=== PATIENT | female | born 1995 | race Caucasian/White ===

== ENCOUNTER → 2017-09-02 11:44 | Outpatient (CLI) | payer MEDICAID, SELFPAY ==
[2017-09-02 12:27] LABS: Color, Urine Yellow (Yellow); Glucose, Dipstick Normal (Normal); Ketone-Dipstick Negative (Negative); Leukocyte Esterase-Dipstick 100 /ul (Negative); Nitrite-Dipstick Negative (Negative); Occult Blood-Urine Negative /ul (Negative); Protein-Dipstick 15 mg/dl (Negative); Specific Gravity, Urine 1.015 (1.002-1.030); Urine Bilirubin Dipstick Negative (Negative); Urine Clarity Clear (Clear); Urine Urobilinogen Normal (Normal)
[2017-09-02 12:35] LABS: Absolute Lymphocyte Count 1.55 X10^3/ul (0.83-4.51); Absolute Neutrophil Count 9.4 X10^3/uL (2.0-7.7); Basophil# 0.02 X10^3/uL; Basophil% 0.2 % (0-1); Eosinophil# 0.14 X10^3/uL; Eosinophils% 1.2 % (0-5); Hematocrit 41.3 % (37-47); Hemoglobin 14.8 g/dl (12.0-15.0); Lymphocyte # 1.55 X10^3/ul (4.0); Lymphocyte % 13.2 % (19-41); Mean Corp Hgb Conc 35.8 g/gl (32-36); Mean Corpuscular Hgb 32.4 pg (27.0-32.0); Mean Corpuscular Volume 90.4 fL (81-99); Mean Platelet Vol. 10.6 fl (6.2-12.0); Monocyte% 5.1 % (0-10); Neutrophil % 79.9 % (47-70); Platelet Count 261 K/mm3 (150-450); RBC Distribution Width CV 13.8 % (11.6-14.6); RBC Distribution Width SD 45.5 fl (35.1-43.9); Red Blood Count 4.57 M/mm3 (4.2-5.4); White Blood Count 11.8 K/mm3 (4.4-11.0)
[2017-09-02 12:36] LABS: POSITIVE COUNT NO; POSITIVE DIFFERENTIAL NO; POSITIVE MORPHOLOGY NO
[2017-09-02 12:49] LABS: Amphetamine Urine VISTA NEGATIVE (<1000 ng/mL); Barbiturate Urine VISTA NEGATIVE (< 200 ng/mL); Benzodiazepine Urine VISTA NEGATIVE (< 200 ng/mL); Cocaine Urine VISTA NEGATIVE (< 300 ng/mL); Ecstacy Urine VISTA NEGATIVE (< 500 ng/mL); Methadone Urine VISTA NEGATIVE (< 300 ng/mL); PCP Urine VISTA NEGATIVE (< 25 ng/mL); THC Urine VISTA NEGATIVE (< 50 ng/mL); Vista UDS pH Range 7
[2017-09-02 13:41] LABS: Thyroid Stim Hormone (TSH) 1.27 uIU/mL (0.358-3.74)
[2017-09-02 14:34] LABS: Chlamydia Trachomatis by PCR Negative (Negative); Neisserai gonorrhoeae by PCR Negative (Negative); Probe Check PASS; Sample Adequacy Control PASS; Specimen Processing Control PASS
[2017-09-03 10:31] LABS: HIV - WCH Non-Reactive (Nonreactive); Rubella IgG 33.7 IU/mL
[2017-09-05 05:02] LABS: Prenatal RPR NONREACTIVE (NONREACTIVE)
[2017-09-10 10:20] LABS: HEPATITIS B SURFACE AG Negative (Negative); Hep C Antibodies 0.1 s/co ratio (0.0-0.9); V-Zoster IgG (Immunity) < 135 index (Immune >165); V-Zoster Virus Acute IgM < 0.91 index (0.00-0.90)
== END ==
PROVIDERS: Visit Provider Obstetrics & Gynecology
DX: Z34.82 Encounter for supervision of other normal pregnancy, second trimester (principal)
CPT/HCPCS: 36415; 80307; 81002; 81241; 81291; 84443; 85025; 86703; 86762; 86787; 86803; 87340; 87491; 87591

== ENCOUNTER → 2017-10-28 14:06 | Outpatient (CLI) | payer MEDICAID, SELFPAY ==
[2017-10-28 16:03] LABS: Hematocrit 41.3 % (37-47); Mean Corp Hgb Conc 33.9 g/gl (32-36); Mean Corpuscular Volume 94.5 fL (81-99); Mean Platelet Vol. 10.8 fl (6.2-12.0); Platelet Count 286 K/mm3 (150-450); RBC Distribution Width CV 13.6 % (11.6-14.6); RBC Distribution Width SD 47.2 fl (35.1-43.9); Red Blood Count 4.37 M/mm3 (4.2-5.4); Scan Indicated on CBC? Y/N NO; White Blood Count 12.9 K/mm3 (4.4-11.0)
[2017-10-28 16:05] LABS: Glucose Challenge Gest 1H 50g 121 mg/dL (70-140)
== END ==
PROVIDERS: Visit Provider Obstetrics & Gynecology
DX: Z34.83 Encounter for supervision of other normal pregnancy, third trimester (principal)
CPT/HCPCS: 82950; 85027

== ENCOUNTER → 2017-12-04 15:18 | Outpatient (CLI) | payer MEDICAID, SELFPAY ==
[2017-12-04 15:48] LABS: ROM Internal Control Test YES-OK TO RESULT pt. (Internal QC); ROM Patient Test Negative (Negative)
[2017-12-04 16:04] LABS: Fetal Fibronectin POSITIVE
== END ==
PROVIDERS: Visit Provider Obstetrics & Gynecology
DX: Z34.82 Encounter for supervision of other normal pregnancy, second trimester (principal)
CPT/HCPCS: 82731; 84112

== ENCOUNTER 2017-12-09 15:40 | Outpatient (CLI) | payer MEDICAID, SELFPAY ==
[2017-12-09 15:56] VITALS: BMI 34.9
[2017-12-09] MEDS: Betamethasone/Betamethasone 30 MG/5 ML Vial 12 MG IM (16:21)
--- NOTE | 2017-12-10 08:31 | OB.TRI.NOTE ---
History of Present Illness Date of Service: 12/09/17 Was patient seen by the physician?: Yes Reason For Visit: INJECTION Date of Service: 12/09/17 Final FARHAT: 01/28/18 Final FARHAT Source: US <20 weeks Gestational age: 33 Weeks and 0 Days History of Present Illness: Visit for celestone injection due to risk of premature delivery. +FFN last week, history of 33 week delivery. Allergies bee venom protein (honey bee) Allergy (Verified 12/09/17 16:01) Anaphylaxis sulfamethoxazole [From Novra] Allergy (Verified 12/09/17 16:01) Hives trimethoprim [From Novra] Allergy (Verified 12/09/17 16:01) Hives Physical Exam General: Alert, Oriented x3, Cooperative, No apparent distress Lungs: Clear to auscultation, Normal air movement Abdomen: Soft, Non Tender, Non-Distended, Gravid, Appropriate for Gestational Age Extremities:: No edema Neurological: Neuro grossly intact Estimated gestational size: Appropriate for gestational size Presentation: Cephalic Impression/Plan Given first dose of 2 celestone injections to promote lung maturity due to risk of delivery.
== END 2017-12-09 16:30 | disposition home or self-care (01) ==
LOC: WPOUT 15:44 → WP 15:45
PROVIDERS: Referring Provider Obstetrics & Gynecology; Visit Provider Obstetrics & Gynecology
DX: O09.213 Supervision of pregnancy with history of pre-term labor, third trimester (principal); Z3A.33 33 weeks gestation of pregnancy
CPT/HCPCS: 96372; 99218; G0378; J0702

== ENCOUNTER 2017-12-10 15:50 | Outpatient (CLI) | payer MEDICAID, SELFPAY ==
[2017-12-10 16:07] VITALS: BMI 34.9
[2017-12-10] MEDS: Betamethasone/Betamethasone 30 MG/5 ML Vial 12 MG IM (16:51)
[2017-12-10 17:40] LABS: ROM Internal Control Test YES-OK TO RESULT pt. (Internal QC); ROM Patient Test Negative (Negative)
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
== END 2017-12-10 20:30 | disposition home or self-care (01) ==
LOC: WPOUT 15:54 → WP 15:55
PROVIDERS: Referring Provider Obstetrics & Gynecology; Visit Provider Obstetrics & Gynecology
DX: O09.213 Supervision of pregnancy with history of pre-term labor, third trimester (principal); Z3A.33 33 weeks gestation of pregnancy; V89.2XXA Person injured in unspecified motor-vehicle accident, traffic, initial encounter; Y93.9 Activity, unspecified; Y92.9 Unspecified place or not applicable
CPT/HCPCS: 59025; 59050; 84112; 96372; 99218; G0378; J0702

== ENCOUNTER 2017-12-21 19:05 | Outpatient (CLI) | payer MEDICAID, SELFPAY ==
[2017-12-21 20:03] LABS: Red Blood Cells-Urine 0 SEEN /hpf (0-5)
[2017-12-21 20:04] LABS: Color, Urine Yellow (Yellow); Glucose, Dipstick Normal (Normal); Ketone-Dipstick 5 mg/dl (Negative); Leukocyte Esterase-Dipstick 25 /ul (Negative); Nitrite-Dipstick Negative (Negative); Occult Blood-Urine 10 /ul (Negative); Protein-Dipstick 30 mg/dl (Negative); Specific Gravity, Urine 1.025 (1.002-1.030); Urine Bilirubin Dipstick Negative (Negative); Urine Clarity Sl. Cloudy (Clear); Urine Urobilinogen 1 mg/dl (Normal); Urine pH 6.5 (5.0 - 8.0)
[2017-12-21 20:10] LABS: Bacteria RARE /hpf (None Seen); Squamous Epithelial Cells - UA 5-10 SEEN /hpf (5-10); White Blood Cells 0-5 SEEN /hpf (0-5)
[2017-12-21 20:11] LABS: Mucous, Urine RARE /hpf (<or=2+)
[2017-12-21 20:22] VITALS: BMI 34.4
[2017-12-21 20:27] LABS: ROM Internal Control Test YES-OK TO RESULT pt. (Internal QC); ROM Patient Test Negative (Negative)
[2017-12-21] MEDS: Lactated Ringers 1,000 ML 999 ML IV (21:00)
[2017-12-21 21:14] LABS: Hemoglobin 13.2 g/dl (12.0-15.0); Mean Corp Hgb Conc 33.8 g/gl (32-36); Mean Corpuscular Hgb 31.6 pg (27.0-32.0); Mean Corpuscular Volume 93.3 fL (81-99); Mean Platelet Vol. 10.1 fl (6.2-12.0); Platelet Count 246 K/mm3 (150-450); RBC Distribution Width CV 13.5 % (11.6-14.6); RBC Distribution Width SD 45.3 fl (35.1-43.9); Red Blood Count 4.18 M/mm3 (4.2-5.4); Scan Indicated on CBC? Y/N NO; White Blood Count 12.7 K/mm3 (4.4-11.0)
[2017-12-21] MEDS: Cefazolin 2 GM in 0.9% Normal Saline 100 ML IV (21:14)
[2017-12-21] MEDS: Acetaminophen 500 MG Tablet 1000 MG PO (21:18)
[2017-12-21 21:28] LABS: Group B Strep DNA By PCR Negative (Negative); Internal Control PASS; Probe Check PASS; Specimen Processing Control PASS
--- NOTE | 2017-12-21 21:49 | PCM.HP.BLA ---
History and Physical Date of Admission: 12/21/17 [facility] History of this : 22 yo female Ab4 with EDC 01/28/2018 by Ultrasound, presents to Labor and Delivery with contractions ast 34 weeks and 5 days gestation. care remarkable for - HSV prophylaxis after 36 wks., H/O 33 wk delivery SPPROM, NOT immune to CHICKENPOX. 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 NOT at increased risk of clot. Pertinent Past Medical History: Group B Strep - Negative 12/21/17; none Allergies: Adhesive Tape Medications: During - albuterol sulfate HFA 90 mcg/actuation aerosol inhaler; aspirin 81 mg chewable tablet; famotidine 20 mg tablet; Flintstones Multivitamin chewable tablet; Zofran 4 mg tablet; Protonix 40 mg tablet,delayed release; sertraline 50 mg tablet; Promethazine VC-Codeine 6.25 mg-5 mg-10 mg/5 mL syrup; valacyclovir 500 mg tablet Heart: Reactive Physical Exam: Cervix 3/50/-2 Impression /Plan: 34+ week IUPwith transient contractions. UA with positive blood and bacteria. Plan hydration, single dose IV Ancef, Urine C and S and monitor. GBS done. Had dose of celestone last week. 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 COMMUNITY PLAN POLICY # [id number] /DOMESTIC PARTNER KYE PHONE doesn't answer cell. FATHER OF BABY KYE PHONE prev page. EMERGENCY CONTACT LUDY MOORE PHONE [phone] MENSTRUAL HISTORY LMP KNOWN: DEFINITE MENSES REGULARITY REGULAR FREQUENCY: monthly DAYS MENARCHE 9 (AGE ONSET) DATE: 04/23/2017 PRIOR MENSES ON BCP AT CONCEPTION NO HCG + AMOUNT/DURATION: PAST PREGNANCIES (LAST SIX) DATE MONTH/ YEAR GA WEEKS LENGHTH OF LABOR WEIGHT SEX M/F TYPE DELIBERY ANES. PLACE OF DLEIVERY LABOR YES/NO COMMENTS/ COMPLICATIONS 03/12 8 0 0 lbs. 0 oz. Vag None [place] No SAB 03/14 8 0 0 lbs. 0 oz. Sab None Ruby No 12/15 33 4 4 lbs. 12 oz. F Vag Epidural NC yes NICU 10 D. 03/18 8 0 0 lbs. 0 oz. Vag None HOME No SAB 04/19 8 0 0 lbs. 0 oz. Vag None HOME No SAB GENETIC SCREENING/TERATOLOGY COUNSELING INCLUDES PATIENT, BABY'S FATHER, OR ANYONE IN EITHER FAMILY WITH: YES NO YES NO 1. PATIENT'S AGE >35 YEARS OF ESTIMATED DATE OF DELIVERY No 12. GERMÁN'S CHOREA No 2. THALASSENMIA (MALAYSIAN, FAROESE, MEDITERRANEAN, OR BACKGROUND): MCV <80 No 13. MENTAL RETARDATION/AUTISM No 3. NEURAL TUBE DEFECT (MENINGOMYELOCELE, SPINA BIFICA, OR ANENCEPHALY) No IF YES, WAS PERSON TESTED FOR FRAGILE X? No 4. CONGENITAL HEART DEFECT No 14. OTHER INHERITED GENETIC OR CHROMOSOMAL DISORDER Yes 5. DOWN SYNDROME No 15. MATERNAL METABOLIC DISORDER (EG, TYPE 1 DIABETES, PKU) No 6. ARTIE-SACHS (EG, CAODAISM, CAJUN, ROMANIAN FINNISH) No 16. PATIENT OR BABY'S FATHER HAD A CHILD WITH DEFECTS NOT LISTED ABOVE No 7. YVAN DISEASE 17. RECURRENT LOSS, OR A ASTILLBIRTH Yes x4 8. SICKLE CELL DISEASE OR TRAIT () No 18. MEDICATIONS (INCLUIDNG SUPPLEMENTS, VITAMINS, HERBS OR OTC DRUGS) /ILLICIT/RECREATIONAL DRUGS /ALCOHOL SINCE LAST MENSTRUAL PERIOD Yes 9. HEMOPHILIA OR OTHER BLOOD DISORDERS No IF YES, AGENT(S) AND STRENGTH/DOSAGE 10. MUSCULAR DSTROPHY No 11. CYSTIC FIBROSIS No-declines screening 19. ANY OTHER Yes COMMENTS/ COUNSELING baby aspirin, famotidine, albuterol inhaler daughter w autism INFECTION HISTORY YES NO YES NO 1. LIVE WITH SOMEONE WITH TB OR EXPOSED TO TB No 4. HISTORY OF STD, GONORRHEA, CHLAMYDIA, HPV, SYPHILIS Yes 2. PATIENT OR PARTNER HAS HISTORY OF GENITAL HERPES Yes 5. OTHER (See Comments) 3. [facility]NESS [facility] No COMMENTS Her mother has AIDS. PREPREGNANCY WEIGHT 218 DRUG ALLERGY LATEX ALLERGY Septra Adhesive Tape NONE IS BLOOD TRANSFUSION ACCEPTABLE JOY AN EMERGENCY? YES NO ANESTHESIA CONSULT PLANNED YES NO PROBLEMS/PLANS 1 HX- asthma, bronchitis, UTIs. 2 ALLERGIES- Septra, tape. 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 4 Cell free DNA WNL. 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 testing NEG 6 H/O 33 wk delivery SPPROM On progesterone injections Cervical length 3.96 cm at 27 wks EGA 7 H/O depression, anxiety, PTSD On Sertraline 8 HSV prophylaxis after 36 wks. 9 Neg Factor V Leiden. NOT at increased risk of clot. MTHFR. mutations 10 NOT immune to CHICKENPOX. Varicella IgG NEG MEDICATION LIST START DATE STOP DATE 1 albuterol sulfate HFA 90 mcg/actuation aerosol inhaler 09/02/2017 2 aspirin 81 mg chewable tablet 09/02/2017 3 famotidine 20 mg tablet 09/02/2017 4 Flintstones Multivitamin chewable tablet 09/02/2017 5 Zofran 4 mg tablet 09/02/2017 6 Protonix 40 mg tablet,delayed release 09/11/2017 7 sertraline 50 mg tablet 09/11/2017 8 Promethazine VC-Codeine 6.25 mg-5 mg-10 mg/5 mL syrup 10/29/2017 9 valacyclovir 500 mg tablet 12/04/2017 FARHAT CONFIRMATION INITIAL FARHAT LMP = FARHAT INITIAL EXAM = WKS = FARHAT ULTRASOUND = WKS = FARHAT INITIAL FARHAT INITIALED BY 18-20-WEEK FARHAT UPDATE QUIKENING + 22 WKS = FUNDAL HT. AT UMBIL. +20 WKS = ULTRASOUND = WKS= FINAL FARHAT 01/28/2018 INITIALED BY 09/02/17 18 19 ? + + 124/70 212 tr/- 0 1 DS see note 09/09/17 19 20 ? + + 128/64 213 -/- 0 4 DS see note 09/30/17 22 26 ? + + 126/78 210 -/- 0 4 DS see note 10/28/17 26 - - U+ + 100/72 212 tr/- 0 2 ELB GCT today, occ ctx's 11/11/17 28 29 ? + + 124/70 212 tr/- 0 3 DS No problems 12/04/17 32 32 V + + cl TH -2 116/74 208 -/- 2 DS c/o increased vomiting and leaking fluid dg 12/09/17 32 33 V + + 120/70 210 tr/- 1 DS No problems 12/18/17 34 34 V + + 108/70 205 tr/- sl 1 DS doing well, u/s prior PROBLEMS 09/02/17 Renetta presents as a transfer of care for her . She has had some care and an MFM consultation. She has a number of different issues. She has a history of miscarraiges and one delivery at 33 weeks. She should be on Chestnut injections and am unsure if this is set up but I think home visits would be warranted given social situation. Will plan on serial cervical lengths. She is a carrier of the MTHFR mutation per her history but we do not know whether she is a homo- or heterozygote or whether she carries any other inhertited coagulopathies. She does take a baby aspirin daily. She also reports being a Fragile X carrier but no records of this as well. I will attempt to get MFM records. She scores poorly on the [place] depression scale today and will need to address this issue but is not suicidal or having thoughts of harming herself. An anatomical US is ordered for next visit. labs ordered today. 09/02/17 Renetta is here with her mother, Ludy, her sister and her very active 4 yo daughter, Jennifer for her NOB nurse visit as a transfer of care from [place]. They are living in a trailer with other family members. Renetta is unemployed. Her , Edilson works at [employer] as a handstitching machine armhole feller. She is planning a vag del at [facility] w epidural, using either [facility] in [place] or Dr Sharon Tena for post disch ped care. She plans to breastfeed. Renetta is a G 6 P 1 with delivery at 33 weeks as PTL was unable to be stopped with MGSO4 w 10 NICU days in [place]. Jennifer has SPD, Sensory Processing Disorder and is probably on the autism spectrum. Renetta's FARHAT is Jan 28, 2018. She continues to have NVP w promethazine and Reglan unhelpful. States I threw up in your parking lot today. Her medical history includes: asthma, anxiety, depression, herpes, PTSD, UTIs, bronchitis every year and she has MTHER. Also she is a carrier for Fragile X Syndrome. She's been on Vibryd but didn't like feeling drugged so I quit taking it. EPDS score was 22. Renetta has smoked since age 13 as much as two PPD. Now is 10-14 cigarettes daily. Risks of smoking to placenta and fetus discussed and advised to cut down and quit. She states I am a recovered drug addict- I did anything and everything- it will be 4 years in December. Her diet sounds fairly balanced w minimal caffeine and close to one gal water qd. Renetta is allergic to Septra and adhesive tape. Her meds include an Albuterol Inhaler prn, baby aspirin daily, famotidine and a [facility] Vitamin. Advised she could take two of the vitamins. Genetic Screening form completed noting her Fragile X status, daughter w dev disabilities. AFP and CF declined as she states she has had extensive genetic testing done at [facility]. Warning signs in reviewed along with reaching office after hours, OTC meds ok to take, importance of protein in diet, walking 20 min daily and she voices understanding. During the visit her mother answered many questions for her. Family history is documented including her mother who states I have AIDS. Detailed History screen completed. Routine labs done plus some added by Dr Vergara. She was given new patient office information and a copy of What to Expect and these were reviewed w her. Questions answered. Enc to call w any concerns. Visit lasted approx 80 minutes. Joanna SOTELO. 09/09/17 Anatomical US performed today. No anomalies noted. Normal growth, placentation and umbilical cord. Cervical length normal. Has been denied for Chestnut injections--will appeal based on history. Extensive records reviewed. Plan to continue cervical lengths every 2-3 weeks. Will consider FFN testing once 24 weeks. 09/30/17 Weekly progesterone injections. Feeling FM. kbm 09/30/17 No complaints. US with growth >90th%. Cervical length normal. Will follow cervical lengths. 10/28/17 Hgb 14 g/dl. Glucola 121 EB 11/11/17 Some nauseousness and heartburn. Good movement. GCT and CBC normal last visit. 12/04/17 Continues with nausea and vomitting with heartburn despite antiemetics and protonix. FFN and ROM+ testing done today. Cervical length 3.0 cm. Good movement. Growth scan and cervical length next visit. 12/09/17 Doing well this week. No contractions. FFN+ last week. Will send to [facility] for celestone injection series. No bleeding or signs of SROM. Will obtain growth US next visit as last US >90th%tile. Continues weekly Li injections 12/18/17 Some irregular contractions. BRITNI low on US today. Plan GBS screening next visit and f/u US to observe fluid. Growth normal. Lab Results since: 06/02/2017 ORDER DATEIN DESCRIPTION VALUE COMMENT CBC-COMPLETE BLOOD CNT NO DIFF 12/21/17 NOTE WBC 12.7 RBC 4.18 HGB 13.2 HCT 39.0 MCV 93.3 MCH 31.6 MCHC 33.8 RDW CV 13.5 RDW SD 45.3 PLT 246 MPV 10.1 GROUP B STREP DNA BY PCR 12/21/17 NOTE GBS TEST RESULT Negative URINALYSIS, COMPLETE 12/21/17 NOTE COLOR Yellow CLARITY Sl. Cloudy GLUCOSE, UR Normal BILIRUBIN URINE Negative KETONE UR 5 SP.GR. DIPSTX 1.025 PH UR 6.5 PROT DIPSTX 30 UROBILI 1 NITRITE UR Negative OCCULT BLOOD-UR 10 LEUK ESTERASE 25 WBC 0-5 SEEN RBC-UA 0 SEEN SQUAM EPI 5-10 SEEN BACTERIA RARE MUCUS, URINE RARE (ROM) RUPTURE OF MEMBRANES 12/21/17 NOTE ROM Negative NOTE ROM Negative (ROM) RUPTURE OF MEMBRANES 12/04/17 NOTE ROM Negative FIBRONECTIN 12/04/17 NOTE FFN POSITIVE GLUCOSE CHALLENGE GEST 1H 50G 10/28/17 NOTE GLU GEST 50G 1H 121 CBC-COMPLETE BLOOD CNT NO DIFF 10/28/17 NOTE WBC 12.9 RBC 4.37 HGB 14.0 HCT 41.3 MCV 94.5 MCH 32.0 MCHC 33.9 RDW CV 13.6 RDW SD 47.2 PLT 286 MPV 10.8 MTHFR DNA VARIANT 09/02/17 NOTE MTHFR DNA Result: C677T Single mutation (C677T) identified FACT V LEIDEN MUTATION 09/02/17 NOTE FACTOR V LEIDEN Result: Negative (no mutation found) DATE 12/21/2017 Page Number 8 NAME [facility] [id number] Medical Record V-ZOSTER VIRUS ACUTE IGM 09/02/17 NOTE V ZOS IGM 77762 < 0.91 V-ZOSTER IGG (IMMUNITY) 09/02/17 NOTE VZOST IGG 19507 < 135 HEPATITIS C ANTIBODIES 09/02/17 NOTE HEP C AB 0.1 HEPATITIS B SURFACE AG 09/02/17 NOTE HB SURF AG Negative RPR 09/02/17 NOTE RPR NONREACTIVE RUBELLA IGG 09/02/17 NOTE RUBELLA IGG 33.7 HIV - WCH 09/02/17 NOTE HIV - [facility] Non-Reactive CT/NG W[facility] BY PCR 09/02/17 NOTE NITOAM TRAC PCR Negative NG BY PCR Negative T AND S-NO CHARGE W/PNP 09/02/17 BLOOD TYPE GEL AB POSITIVE AB SCREEN GEL NEGATIVE THYROID STIM HORMONE (TSH) 09/02/17 NOTE TSH 1.27 URINE DRUG SCREEN (VISTA) 09/02/17 NOTE TO BE CONFIRMED VISTA UDS PH 7 AMPHETAMINES NEGATIVE BARBITIURATES NEGATIVE BENZODIAZIPINE NEGATIVE COCAINE NEGATIVE ECSTACY NEGATIVE METHADONE NEGATIVE OPIATES NEGATIVE PCP NEGATIVE THC NEGATIVE CBC W/DIFF, AUTOMATED 09/02/17 NOTE WBC 11.8 RBC 4.57 HGB 14.8 HCT 41.3 MCV 90.4 MCH 32.4 MCHC 35.8 RDW CV 13.8 RDW SD 45.5 PLT 261 MPV 10.6 NEUT% 79.9 LY% 13.2 MONO% 5.1 EO% 1.2 BASO% 0.2 IM GRAN % 0.400 ABSOLUTE NEUT 9.4 ABSOLUTE LYMPH 1.55 URINALYSIS, ROUTINE (DIPSTICK) 09/02/17 NOTE COLOR Yellow CLARITY Clear GLUCOSE, UR Normal BILIRUBIN URINE Negative KETONE UR Negative SP.GR. DIPSTX 1.015 PH UR 7.0 PROT DIPSTX 15 UROBILI Normal NITRITE UR Negative OCCULT BLOOD-UR Negative LEUK ESTERASE 100
--- NOTE | 2017-12-21 21:54 | HP.PCM_ITS ---
History and Physical Date of Admission: 12/21/17 [facility] History of this : 22 yo female Ab4 with EDC 01/28/2018 by Ultrasound, presents to Labor and Delivery with contractions ast 34 weeks and 5 days gestation. care remarkable for - HSV prophylaxis after 36 wks., H/O 33 wk delivery SPPROM, NOT immune to CHICKENPOX. 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 NOT at increased risk of clot. Pertinent Past Medical History: Group B Strep - Negative 12/21/17; none Allergies: Adhesive Tape Medications: During - albuterol sulfate HFA 90 mcg/actuation aerosol inhaler; aspirin 81 mg chewable tablet; famotidine 20 mg tablet; Flintstones Multivitamin chewable tablet; Zofran 4 mg tablet; Protonix 40 mg tablet,delayed release; sertraline 50 mg tablet; Promethazine VC-Codeine 6.25 mg-5 mg-10 mg/5 mL syrup; valacyclovir 500 mg tablet Heart: Reactive Physical Exam: Cervix 3/50/-2 Impression /Plan: 34+ week IUPwith transient contractions. UA with positive blood and bacteria. Plan hydration, single dose IV Ancef, Urine C and S and monitor. GBS done. Had dose of celestone last week. 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 FATHER OF BABY KYE PHONE prev page. EMERGENCY CONTACT LUDY MOORE PHONE [phone] MENSTRUAL HISTORY LMP KNOWN: DEFINITE MENSES REGULARITY REGULAR FREQUENCY: monthly DAYS MENARCHE 9 (AGE ONSET) DATE: 04/23/2017 PRIOR MENSES ON BCP AT CONCEPTION NO HCG + AMOUNT/DURATION: PAST PREGNANCIES (LAST SIX) DATE MONTH/ YEAR GA WEEKS LENGHTH OF LABOR WEIGHT SEX M/F TYPE DELIBERY ANES. PLACE OF DLEIVERY LABOR YES/NO COMMENTS/ COMPLICATIONS 03/12 8 0 0 lbs. 0 oz. Vag None [place] No SAB 03/14 8 0 0 lbs. 0 oz. Sab None Ruby No 12/15 33 4 4 lbs. 12 oz. F Vag Epidural NC yes NICU 10 D. 03/18 8 0 0 lbs. 0 oz. Vag None HOME No SAB 04/19 8 0 0 lbs. 0 oz. Vag None HOME No SAB GENETIC SCREENING/TERATOLOGY COUNSELING INCLUDES PATIENT, BABY'S FATHER, OR ANYONE IN EITHER FAMILY WITH: YES NO YES NO 1. PATIENT'S AGE >35 YEARS OF ESTIMATED DATE OF DELIVERY No 12. GERMÁN'S CHOREA No 2. THALASSENMIA (AMERICAN, INDONESIAN, MEDITERRANEAN, OR BACKGROUND): MCV <80 No 13. MENTAL RETARDATION/AUTISM No 3. NEURAL TUBE DEFECT (MENINGOMYELOCELE, SPINA BIFICA, OR ANENCEPHALY) No IF YES, WAS PERSON TESTED FOR FRAGILE X? No 4. CONGENITAL HEART DEFECT No 14. OTHER INHERITED GENETIC OR CHROMOSOMAL DISORDER Yes 5. DOWN SYNDROME No 15. MATERNAL METABOLIC DISORDER (EG, TYPE 1 DIABETES, PKU) No 6. ARTIE-SACHS (EG, SABIANIST, CAJUN, BELARUSIAN BRITISH) No 16. PATIENT OR BABY'S FATHER HAD A CHILD WITH DEFECTS NOT LISTED ABOVE No 7. YVAN DISEASE 17. RECURRENT LOSS, OR A ASTILLBIRTH Yes x4 8. SICKLE CELL DISEASE OR TRAIT () No 18. MEDICATIONS (INCLUIDNG SUPPLEMENTS, VITAMINS, HERBS OR OTC DRUGS) /ILLICIT/RECREATIONAL DRUGS /ALCOHOL SINCE LAST MENSTRUAL PERIOD Yes 9. HEMOPHILIA OR OTHER BLOOD DISORDERS No IF YES, AGENT(S) AND STRENGTH/DOSAGE 10. MUSCULAR DSTROPHY No 11. CYSTIC FIBROSIS No-declines screening 19. ANY OTHER Yes COMMENTS/ COUNSELING baby aspirin, famotidine, albuterol inhaler daughter w autism INFECTION HISTORY YES NO YES NO 1. LIVE WITH SOMEONE WITH TB OR EXPOSED TO TB No 4. HISTORY OF STD, GONORRHEA, CHLAMYDIA, HPV, SYPHILIS Yes 2. PATIENT OR PARTNER HAS HISTORY OF GENITAL HERPES Yes 5. OTHER (See Comments) 3. RASH OR VIRAL ILLNESS [facility] No COMMENTS Her mother has AIDS. PREPREGNANCY WEIGHT 218 DRUG ALLERGY LATEX ALLERGY Septra Adhesive Tape NONE IS BLOOD TRANSFUSION ACCEPTABLE JOY AN EMERGENCY? YES NO ANESTHESIA CONSULT PLANNED YES NO PROBLEMS/PLANS 1 HX- asthma, bronchitis, UTIs. 2 ALLERGIES- Septra, tape. 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 4 Cell free DNA WNL. 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 testing NEG 6 H/O 33 wk delivery SPPROM On progesterone injections Cervical length 3.96 cm at 27 wks EGA 7 H/O depression, anxiety, PTSD On Sertraline 8 HSV prophylaxis after 36 wks. 9 Neg Factor V Leiden. NOT at increased risk of clot. MTHFR. mutations 10 NOT immune to CHICKENPOX. Varicella IgG NEG MEDICATION LIST START DATE STOP DATE 1 albuterol sulfate HFA 90 mcg/actuation aerosol inhaler 09/02/2017 2 aspirin 81 mg chewable tablet 09/02/2017 3 famotidine 20 mg tablet 09/02/2017 4 Flintstones Multivitamin chewable tablet 09/02/2017 5 Zofran 4 mg tablet 09/02/2017 6 Protonix 40 mg tablet,delayed release 09/11/2017 7 sertraline 50 mg tablet 09/11/2017 8 Promethazine VC-Codeine 6.25 mg-5 mg-10 mg/5 mL syrup 10/29/2017 9 valacyclovir 500 mg tablet 12/04/2017 FARHAT CONFIRMATION INITIAL FARHAT LMP = FARHAT INITIAL EXAM = WKS = FARHAT ULTRASOUND = WKS = FARHAT INITIAL FARHAT INITIALED BY 18-20-WEEK FARHAT UPDATE QUIKENING + 22 WKS = FUNDAL HT. AT UMBIL. +20 WKS = ULTRASOUND = WKS= FINAL FARHAT 01/28/2018 INITIALED BY 09/02/17 18 19 ? + + 124/70 212 tr/- 0 1 DS see note 09/09/17 19 20 ? + + 128/64 213 -/- 0 4 DS see note 09/30/17 22 26 ? + + 126/78 210 -/- 0 4 DS see note 10/28/17 26 - - U+ + 100/72 212 tr/- 0 2 ELB GCT today, occ ctx's 11/11/17 28 29 ? + + 124/70 212 tr/- 0 3 DS No problems 12/04/17 32 32 V + + cl TH -2 116/74 208 -/- 2 DS c/o increased vomiting and leaking fluid dg 12/09/17 32 33 V + + 120/70 210 tr/- 1 DS No problems 12/18/17 34 34 V + + 108/70 205 tr/- sl 1 DS doing well, u/s prior PROBLEMS 09/02/17 Renetta presents as a transfer of care for her . She has had some care and an MFM consultation. She has a number of different issu es. She has a history of miscarraiges and one delivery at 33 weeks. She should be on Li injections and am unsure if this is set up but I think home visits would be warranted given social situation. Will plan on serial cervical lengths. She is a carrier of the MTHFR mutation per her history but we do not know whether she is a homo- or heterozygote or whether she carries any other inhertited coagulopathies. She does take a baby aspirin daily. She also reports being a Fragile X carrier but no records of this as well. I will attempt to get MFM records. She scores poorly on the Bradley depression scale today and will need to address this issue but is not suicidal or having thoughts of harming herself. An anatomical US is ordered for next visit. labs ordered today. 09/02/17 Renetta is here with her mother, Ludy, her sister and her very active 4 yo daughter, Jennifer for her NOB nurse visit as a transfer of care from [place]. They are living in a trailer with other family members. Renetta is unemployed. Her , Edilson works at [employer] as a bean picker machine operator. She is planning a vag del at [facility] w epidural, using either [facility] in [place] or Dr Sharon Tena for post disch ped care. She plans to breastfeed. Renetta is a G 6 P 1 with delivery at 33 weeks as PTL was unable to be stopped with MGSO4 w 10 NICU days in [place]. Jennifer has SPD, Sensory Processing Disorder and is probably on the autism spectrum. Renetta's FARHAT is Jan 28, 2018. She continues to have NVP w promethazine and Reglan unhelpful. States I threw up in your parking lot today. Her medical history includes: asthma, anxiety, depression, herpes, PTSD, UTIs, bronchitis every year and she has MTHER. Also she is a carrier for Fragile X Syndrome. She's been on Vibryd but didn't like feeling drugged so I quit taking it. EPDS score was 22. Renetta has smoked since age 13 as much as two PPD. Now is 10-14 cigarettes daily. Risks of smoking to placenta and fetus discussed and advised to cut down and quit. She states I am a recovered drug addict- I did anything and everything- it will be 4 years in December. Her diet sounds fairly balanced w minimal caffeine and close to one gal water qd. Renetta is allergic to Septra and adhesive tape. Her meds include an Albuterol Inhaler prn, baby aspirin daily, famotidine and a [facility] Vitamin. Advised she could take two of the vitamins. Genetic Screening form completed noting her Fragile X status, daughter w dev disabilities. AFP and CF declined as she states she has had extensive g enetic testing done at [facility]. Warning signs in reviewed along with reaching office after hours, OTC meds ok to take, importance of protein in diet, walking 20 min daily and she voices understanding. During the visit her mother answered many questions for her. Family history is documented including her mother who states I have AIDS. Detailed History screen completed. Routine labs done plus some added by Dr Vergara. She was given new patient office information and a copy of What to Expect and these were reviewed w her. Questions answered. Enc to call w any concerns. Visit lasted approx 80 minutes. Joanna SOTELO. 09/09/17 Anatomical US performed today. No anomalies noted. Normal growth, placentation and umbilical cord. Cervical length normal. Has been denied for Li injections--will appeal based on history. Extensive records reviewed. Plan to continue cervical lengths every 2-3 weeks. Will consider FFN testing once 24 weeks. 09/30/17 Weekly progesterone injections. Feeling FM. kbm 09/30/17 No complaints. US with growth >90th%. Cervical length normal. Will follow cervical lengths. 10/28/17 Hgb 14 g/dl. Glucola 121 EB 11/11/17 Some nauseousness and heartburn. Good movement. GCT and CBC normal last visit. 12/04/17 Continues with nausea and vomitting with heartburn despite antiemetics and protonix. FFN and ROM+ testing done today. Cervical length 3.0 cm. Good movement. Growth scan and cervical length next visit. 12/09/17 Doing well this week. No contractions. FFN+ last week. Will send to [facility] for celestone injection series. No bleeding or signs of SROM. Will obtain growth US next visit as last US >90th%tile. Continues weekly Li injections 12/18/17 Some irregular contractions. BRITNI low on US today. Plan GBS screening next visit and f/u US to observe fluid. Growth normal. Lab Results since: 06/02/2017 ORDER DATEIN DESCRIPTION VALUE COMMENT CBC-COMPLETE BLOOD CNT NO DIFF 12/21/17 NOTE WBC 12.7 RBC 4.18 HGB 13.2 HCT 39.0 MCV 93.3 MCH 31.6 MCHC 33.8 RDW CV 13.5 RDW SD 45.3 PLT 246 MPV 10.1 GROUP B STREP DNA BY PCR 12/21/17 NOTE GBS TEST RESULT Negative URINALYSIS, COMPLETE 12/21/17 NOTE COLOR Yellow CLARITY Sl. Cloudy GLUCOSE, UR Normal BILIRUBIN URINE Negative KETONE UR 5 SP.GR. DIPSTX 1.025 PH UR 6.5 PROT DIPSTX 30 UROBILI 1 NITRITE UR Negative OCCULT BLOOD-UR 10 LEUK ESTERASE 25 WBC 0-5 SEEN RBC-UA 0 SEEN SQUAM EPI 5-10 SEEN BACTERIA RARE MUCUS, URINE RARE (ROM) RUPTURE OF MEMBRANES 12/21/17 NOTE ROM Negative NOTE ROM Negative (ROM) RUPTURE OF MEMBRANES 12/04/17 NOTE ROM Negative FIBRONECTIN 12/04/17 NOTE FFN POSITIVE GLUCOSE CHALLENGE GEST 1H 50G 10/28/17 NOTE GLU GEST 50G 1H 121 CBC-COMPLETE BLOOD CNT NO DIFF 10/28/17 NOTE WBC 12.9 RBC 4.37 HGB 14.0 HCT 41.3 MCV 94.5 MCH 32.0 MCHC 33.9 RDW CV 13.6 RDW SD 47.2 PLT 286 MPV 10.8 MTHFR DNA VARIANT 09/02/17 NOTE MTHFR DNA Result: [id number] Single mutation (C677T) identified FACT V LEIDEN MUTATION 09/02/17 NOTE FACTOR V LEIDEN Result: Negative (no mutation found) DATE 12/21/2017 Page Number 8 NAME ALANA HEIN [facility] [id number] Medical Record V-ZOSTER VIRUS ACUTE IGM 09/02/17 NOTE V ZOS IGM 60362 < 0.91 V-ZOSTER IGG (IMMUNITY) 09/02/17 NOTE VZOST IGG 41138 < 135 HEPATITIS C ANTIBODIES 09/02/17 NOTE HEP C AB 0.1 HEPATITIS B SURFACE AG 09/02/17 NOTE HB SURF AG Negative RPR 09/02/17 NOTE RPR NONREACTIVE RUBELLA IGG 09/02/17 NOTE RUBELLA IGG 33.7 HIV - WCH 09/02/17 NOTE HIV - [facility] Non-Reactive CT/NG W[facility] BY PCR 09/02/17 NOTE CHLAM TRAC PCR Negative NG BY PCR Negative T AND S-NO CHARGE W/PNP 09/02/17 BLOOD TYPE GEL AB POSITIVE AB SCREEN GEL NEGATIVE THYROID STIM HORMONE (TSH) 09/02/17 NOTE TSH 1.27 URINE DRUG SCREEN (VISTA) 09/02/17 NOTE TO BE CONFIRMED VISTA UDS PH 7 AMPHETAMINES NEGATIVE BARBITIURATES NEGATIVE BENZODIAZIPINE NEGATIVE COCAINE NEGATIVE ECSTACY NEGATIVE METHADONE NEGATIVE OPIATES NEGATIVE PCP NEGATIVE THC NEGATIVE CBC W/DIFF, AUTOMATED 09/02/17 NOTE WBC 11.8 RBC 4.57 HGB 14.8 HCT 41.3 MCV 90.4 MCH 32.4 MCHC 35.8 RDW CV 13.8 RDW SD 45.5 PLT 261 MPV 10.6 NEUT% 79.9 LY% 13.2 MONO% 5.1 EO% 1.2 BASO% 0.2 IM GRAN % 0.400 ABSOLUTE NEUT 9.4 ABSOLUTE LYMPH 1.55 URINALYSIS, ROUTINE (DIPSTICK) 09/02/17 NOTE COLOR Yellow CLARITY Clear GLUCOSE, UR Normal BILIRUBIN URINE Negative KETONE UR Negative SP.GR. DIPSTX 1.015 PH UR 7.0 PROT DIPSTX 15 UROBILI Normal NITRITE UR Negative OCCULT BLOOD-UR Negative LEUK ESTERASE 100
== END 2017-12-22 00:40 | disposition home or self-care (01) ==
LOC: WPOUT 19:34 → WP 19:35
PROVIDERS: Referring Provider Obstetrics & Gynecology; Visit Provider Obstetrics & Gynecology
DX: O60.03 Preterm labor without delivery, third trimester (principal); O99.343 Other mental disorders complicating pregnancy, third trimester; F32.9 Major depressive disorder, single episode, unspecified; F41.9 Anxiety disorder, unspecified; F43.10 Post-traumatic stress disorder, unspecified; O26.23 Pregnancy care for patient with recurrent pregnancy loss, third trimester; O99.513 Diseases of the respiratory system complicating pregnancy, third trimester; J45.909 Unspecified asthma, uncomplicated; O09.213 Supervision of pregnancy with history of pre-term labor, third trimester; O09.893 Supervision of other high risk pregnancies, third trimester; O99.333 Smoking (tobacco) complicating pregnancy, third trimester; F17.210 Nicotine dependence, cigarettes, uncomplicated; Z3A.34 34 weeks gestation of pregnancy; Z87.440 Personal history of urinary (tract) infections; Z86.19 Personal history of other infectious and parasitic diseases; Z79.82 Long term (current) use of aspirin; Z79.899 Other long term (current) drug therapy
CPT/HCPCS: 96361 ×3; 96365; 36415; 59025; 59050; 81001; 84112; 85027; 86850; 86900; 87081; 87086; 87088; 87653; 99218; J7120; G0378

== ENCOUNTER 2017-12-24 21:33 | Outpatient (CLI) | payer MEDICAID, SELFPAY ==
[2017-12-24 22:19] VITALS: BMI 34.8
[2017-12-24 22:35] LABS: Bacteria 0 SEEN /hpf (None Seen); Mucous, Urine 0 SEEN /hpf (<or=2+); Red Blood Cells-Urine 0 SEEN /hpf (0-5)
[2017-12-24 22:37] LABS: Color, Urine Yellow (Yellow); Glucose, Dipstick Normal (Normal); Ketone-Dipstick 5 mg/dl (Negative); Leukocyte Esterase-Dipstick 500 /ul (Negative); Nitrite-Dipstick Negative (Negative); Occult Blood-Urine 25 /ul (Negative); Protein-Dipstick 30 mg/dl (Negative); Specific Gravity, Urine 1.025 (1.002-1.030); Urine Bilirubin Dipstick Negative (Negative); Urine Clarity Sl. Cloudy (Clear); Urine Urobilinogen 1 mg/dl (Normal)
[2017-12-24 22:42] LABS: Squamous Epithelial Cells - UA 10-25 SEEN /hpf (5-10); White Blood Cells 10-25 SEEN /hpf (0-5)
[2017-12-24 22:43] LABS: Calcium Oxalate Crystals Ur 2+ /hpf (<or=2+)
--- NOTE | 2017-12-25 07:56 | OB.TRI.HP_ITS ---
History of Present Illness Date of Service: 12/24/17 Was patient seen by the physician?: No Reason For Visit: R/O LABOR Date of Service: 12/24/17 Final FARHAT: 01/29/18 Final FARHAT Source: US <20 weeks Gestational age: 35 Weeks and 0 Days History of Present Illness: c/o contractions Allergies bee venom protein (honey bee) Allergy (Verified 12/09/17 16:01) Anaphylaxis sulfamethoxazole [From Septra] Allergy (Verified 12/09/17 16:01) Hives trimethoprim [From Septra] Allergy (Verified 12/09/17 16:01) Hives Laboratory Studies: Laboratory Tests 12/24/17 Range/Units 22:30 Urine Color Yellow (Yellow) Urine Clarity Sl. Cloudy (Clear) Urine pH 6.0 (5.0 - 8.0) Ur Specific Evans 1.025 (1.002-1.030) Urine Protein 30 H (Negative) mg/dl Urine Glucose (UA) Normal (Normal) mg/dl Urine Ketones 5 H (Negative) mg/dl Urine Occult Blood 25 H (Negative) /ul Urine Nitrite Negative (Negative) Urine Bilirubin Negative (Negative) mg/dL Urine Urobilinogen 1 H (Normal) mg/dl Ur Leukocyte Esterase 500 H (Negative) /ul Urine RBC 0 SEEN (0-5) /hpf Urine WBC 10-25 SEEN (0-5) /hpf Ur Squamous Epith Cells 10-25 SEEN (5-10) /hpf Calcium Oxalate Crystal 2+ (<or=2+) /hpf Urine Bacteria 0 SEEN (None Seen) /hpf Urine Mucus 0 SEEN (<or=2+) /hpf Physical Exam General: Alert, Oriented x3, Cooperative, No apparent distress Cardiovascular: Regular rate, Regular Rhythm Lungs: Clear to auscultation, Normal air movement Abdomen: Soft, Non Tender, Non-Distended, Gravid, Appropriate for Gestational Age Extremities:: No edema Neurological: Neuro grossly intact MASS SPECTROMETRY SPECIALIST: Normal external genitalia Estimated gestational size: Appropriate for gestational size Presentation: Cephalic Cervix Dilation (cm): 4 Station: -3 Effacement (%): 25 NST - FHR Rate Baby A Baseline: 130s Variability:: Moderate Accelerations:: 15 x 15 Decelerations:: None NST Reactive:: Yes, Appropriate for gestational age FHR Category:: Category I Uterine Activity:: irregular Impression/Plan Not in active labor. Cervix exam unchanged. FHR tracing Cat 1. Will followup in office tomorrow as scheduled.
== END 2017-12-24 22:51 | disposition home or self-care (01) ==
LOC: WPOUT 22:11 → WP 22:19
PROVIDERS: Visit Provider Obstetrics & Gynecology
DX: O62.9 Abnormality of forces of labor, unspecified (principal); Z3A.35 35 weeks gestation of pregnancy
CPT/HCPCS: 59025; 59050; 81001; 99218; G0378

== ENCOUNTER → 2018-01-02 15:13 | Outpatient (CLI) | payer MEDICAID, SELFPAY ==
[2018-01-02 15:54] LABS: ROM Internal Control Test YES-OK TO RESULT pt. (Internal QC)
[2018-01-02 15:59] LABS: ROM Patient Test Negative (Negative)
== END ==
PROVIDERS: Visit Provider Obstetrics & Gynecology
DX: Z34.83 Encounter for supervision of other normal pregnancy, third trimester (principal)
CPT/HCPCS: 84112

== ENCOUNTER 2018-01-06 14:20 | Outpatient (CLI) | payer MEDICAID, SELFPAY ==
[2018-01-06 14:29] VITALS: BMI 34.2
[2018-01-06 14:57] LABS: ROM Internal Control Test YES-OK TO RESULT pt. (Internal QC); ROM Patient Test Negative (Negative)
--- NOTE | 2018-01-07 08:35 | OB.TRI.NOTE ---
History of Present Illness Reason For Visit: R/O LABOR Date of Service: 01/06/18 Final FARHAT: 01/28/18 Final FARHAT Source: US <20 weeks Gestational age: 37 Weeks and 0 Days History of Present Illness: C/O contractions, possible leaking amniotic fluid Allergies bee venom protein (honey bee) Allergy (Verified 01/07/18 04:47) Anaphylaxis sulfamethoxazole [From ] Allergy (Verified 01/07/18 04:47) Hives trimethoprim [From Novra] Allergy (Verified 01/07/18 04:47) Hives Laboratory Studies: Laboratory Tests 01/06/18 Range/Units 14:30 Vag Amniotic Fld Detect Negative (Negative) Physical Exam General: Alert, Oriented x3, Cooperative, No apparent distress Cardiovascular: Regular rate, Regular Rhythm Lungs: Clear to auscultation, Normal air movement Abdomen: Soft, Non Tender, Non-Distended, Gravid, Appropriate for Gestational Age Extremities:: No edema Neurological: Neuro grossly intact BLOCK ENGRAVER: Normal external genitalia Estimated gestational size: Appropriate for gestational size Presentation: Cephalic Cervix Dilation (cm): 4 Station: -3 Effacement (%): 50 NST - FHR Rate Baby A Baseline: 150s Variability:: Moderate Accelerations:: 15 x 15 Decelerations:: None NST Reactive:: Yes, Appropriate for gestational age FHR Category:: Category I Uterine Activity:: irregular Impression/Plan No change in cervical exam. ROM+ testing negative. Discharged home in possible latent labor. Return if contractions increase in intensity or frequency. CAT 1 FHR tracing.
--- NOTE | 2018-01-07 08:38 | OB.TRI.HP_ITS ---
History of Present Illness Reason For Visit: R/O LABOR Date of Service: 01/06/18 Final FARHAT: 01/28/18 Final FARHAT Source: US <20 weeks Gestational age: 37 Weeks and 0 Days History of Present Illness: C/O contractions, possible leaking amniotic fluid Allergies bee venom protein (honey bee) Allergy (Verified 01/07/18 04:47) Anaphylaxis sulfamethoxazole [From ] Allergy (Verified 01/07/18 04:47) Hives trimethoprim [From Novra] Allergy (Verified 01/07/18 04:47) Hives Laboratory Studies: Laboratory Tests 01/06/18 Range/Units 14:30 Vag Amniotic Fld Detect Negative (Negative) Physical Exam General: Alert, Oriented x3, Cooperative, No apparent distress Cardiovascular: Regular rate, Regular Rhythm Lungs: Clear to auscultation, Normal air movement Abdomen: Soft, Non Tender, Non-Distended, Gravid, Appropriate for Gestational Age Extremities:: No edema Neurological: Neuro grossly intact STAVE CUTTER: Normal external genitalia Estimated gestational size: Appropriate for gestational size Presentation: Cephalic Cervix Dilation (cm): 4 Station: -3 Effacement (%): 50 NST - FHR Rate Baby A Baseline: 150s Variability:: Moderate Accelerations:: 15 x 15 Decelerations:: None NST Reactive:: Yes, Appropriate for gestational age FHR Category:: Category I Uterine Activity:: irregular Impression/Plan No change in cervical exam. ROM+ testing negative. Discharged home in possible latent labor. Return if contractions increase in intensity or frequency. CAT 1 FHR tracing.
== END 2018-01-06 15:33 | disposition home or self-care (01) ==
LOC: WPOUT 14:25 → WP 14:26
PROVIDERS: Referring Provider Obstetrics & Gynecology; Visit Provider Obstetrics & Gynecology
DX: O62.9 Abnormality of forces of labor, unspecified (principal); Z3A.37 37 weeks gestation of pregnancy
CPT/HCPCS: 59025; 59050; 84112; 99218; G0378

== ENCOUNTER 2018-01-07 01:30 | Inpatient (IN) | payer MEDICAID, SELFPAY ==
[2018-01-07 02:05] LABS: Hemoglobin 14.2 g/dl (12.0-15.0); Mean Corp Hgb Conc 34.6 g/gl (32-36); Mean Corpuscular Hgb 31.9 pg (27.0-32.0); Mean Corpuscular Volume 92.1 fL (81-99); Mean Platelet Vol. 10.2 fl (6.2-12.0); Platelet Count 302 K/mm3 (150-450); RBC Distribution Width CV 13.8 % (11.6-14.6); RBC Distribution Width SD 45.9 fl (35.1-43.9); Red Blood Count 4.45 M/mm3 (4.2-5.4); White Blood Count 10.6 K/mm3 (4.4-11.0)
[2018-01-07 02:08] LABS: Scan Indicated on CBC? Y/N NO
[2018-01-07] MEDS: Lactated Ringers 1,000 ML 50 ML IV (02:20)
[2018-01-07] MEDS: Oxytocin 30 units/NS 500 ml 30 UNITS/500 ML IV.SOLN 334 UNITS IV (03:30)
[2018-01-07] MEDS: Ondansetron 4 MG/2 ML Vial IV (03:45)
--- NOTE | 2018-01-07 03:52 | PCM.OB.VAG ---
Vaginal Delivery Maternal Presentation: Active Labor Amniotic Membrane Rupture Type: Artificial Amniotic Fluid Description: Clear Final FARHAT: 01/28/18 Gestational age: 37 Weeks and 0 Days Date of Procedure: 01/07/18 Pre-Operative Diagnosis: 37 wk labor Post-Operative Diagnosis: same Surgery/ Procedure Performed: Spontaneous Vaginal Delivery Anesthesiologist: Jessica Lopez Type of Anesthesia: Epidural Description of Procedure: of a james viable male over intact perineum to laceration. head delivered RONNIE. Shoulders delivered immediately after VTX due to maternal expulsive effeort. OP and nares bulb suctioned on maternal abdomen. Delayed cord clamping employed. Cord clamped x two and cut. PP exam : 1st deg cynthia-clitoral laceration. repaired under epidural and 1% lidocaine local to hemostatic and intact with 3-0 Vicryl Rapide. No other repair Placenta delivered by spont expulsion, expression. 3V cord normal appearing, intact with trailing membranes. EBL 250 Patient and infant gopi delivery well. To recovery, stable condition. Ray Edie counts correct x two. Presentation: Vertex, RONNIE Placental Delivery Description: Spontaneous, Expressed Placenta Disposition: [facility] Cord Vessel Description: 3 Vessels Cord Entanglement: None Estimated Blood Loss: 250 Infant A gender: Male (1 minute): 8 (5 minute): 10 Episiotomy Description: None Laceration: Perineal Extension/lac, 1st degree - periclitoral 1st deg Medications given after delivery: IV Pitocin Complications: None
--- NOTE | 2018-01-07 03:57 | OP.PCM_ITS ---
Vaginal Delivery Maternal Presentation: Active Labor Amniotic Membrane Rupture Type: Artificial Amniotic Fluid Description: Clear Final FARHAT: 01/28/18 Gestational age: 37 Weeks and 0 Days Date of Procedure: 01/07/18 Pre-Operative Diagnosis: 37 wk labor Post-Operative Diagnosis: same Surgery/ Procedure Performed: Spontaneous Vaginal Delivery Anesthesiologist: Jessica Lopez Type of Anesthesia: Epidural Description of Procedure: of a james viable male over intact perineum to laceration. head delivered RONNIE. Shoulders delivered immediately after VTX due to maternal expulsive effeort. OP and nares bulb suctioned on maternal abdomen. Delayed cord clamping employed. Cord clamped x two and cut. PP exam : 1st deg cynthia-clitoral laceration. repaired under epidural and 1% lidocaine local to hemostatic and intact with 3-0 Vicryl Rapide. No other re pair Placenta delivered by spont expulsion, expression. 3V cord normal appearing, intact with trailing membranes. EBL 250 Patient and gopi delivery well. To recovery, stable condition. Ray Edie counts correct x two. Presentation: Vertex, RONNIE Placental Delivery Description: Spontaneous, Expressed Placenta Disposition: [facility] Cord Vessel Description: 3 Vessels Cord Entanglement: None Estimated Blood Loss: 250 Infant A gender: Male (1 minute): 8 (5 minute): 10 Episiotomy Description: None Laceration: Perineal Extension/lac, 1st degree - periclitoral 1st deg Medications given after delivery: IV Pitocin Complications: None
--- NOTE | 2018-01-07 03:58 | DCINST_ITS ---
Discharge Diet: No Restrictions Return to work on:: 02/23/18 May resume sexual activity in: 4-6 weeks Additional Activity Instructions:: Nothing in the vagina for 4-6 weeks. You may return to work/school in 6 weeks. Additional Instructions: If you experience any of the following, contact your healthcare provider. * Bleeding that soaks a pad every hour for 2 hours * Fever 100.4 or higher * Unrelieved abdominal pain * * Problems urinating (including inability to urinate or burning while urinating). * Visual changes * Severe headache * Flu-like symptoms * Pain or redness in one of both of your breasts * Pain, warmth, tenderness or swelling in your legs, especially the calf area * Frequent nausea and vomiting * Symptoms of depression or anxiety If you experience any of the following, call 911 or go to the nearest Emergency Room. * Chest pain * Problems breathing * Seizure activity * Partial or complete paralysis of a body part, slurred speech, weakness or drooping of the face, or a sudden inability to walk or hold your balance Allergies/Adverse Reactions: Allergies bee venom protein (honey bee) Allergy (Verified 12/09/17 16:01) Anaphylaxis sulfamethoxazole [From ] Allergy (Verified 12/09/17 16:01) Hives trimethoprim [From ] Allergy (Verified 12/09/17 16:01) Hives Medications to take at Discharge Ondansetron HCl [Zofran] 4 mg PO BID 12/09/17 Pantoprazole Sodium [Protonix] 20 mg PO DAILY 12/09/17 Pediatric Multivit Comb. No.49 [Flintstones Gummies] 1 each PO DAILY 12/09/17 Sertraline HCl [Zoloft] 50 mg PO DAILY 12/09/17 Valacyclovir HCl [Valtrex] 500 mg PO DAILY 12/09/17 Benzonatate [Tessalon Perle] 100 mg PO 4X/DAY PRN PRN 01/06/18 Please Follow Up With: Ruiz Vergara MD - [phone] When: Call to make an appointment with your doctor in 6 weeks. If you had elevated Blood Pressure or 4th degree laceration you will need to be seen in 2 weeks. Primary Care Physician: Care Physician,No Primary [Primary Care Provider] - Test Results: Test results from this visit will be discussed in further detail at your follow- up appointment, if applicable. Proposed Discharge Date: 01/09/18
[2018-01-07] MEDS: Oxytocin 30 units/NS 500 ml 30 UNITS/500 ML IV.SOLN 167 UNITS IV (04:00)
[2018-01-07] MEDS: Methylergonovine 0.2 MG/ML Ampul IM (04:10)
[2018-01-07 04:46] VITALS: BMI 34.0
[2018-01-07] MEDS: Acetaminophen 325 MG Tablet PO (05:26)
[2018-01-07] MEDS: Mag Hydrox/Al Hydrox/Simeth 30 ML UDC PO (05:26)
[2018-01-07] MEDS: Ibuprofen 600 MG Tablet PO ×2 (09:29→20:10)
[2018-01-07] MEDS: Sertraline 50 MG Tablet PO (09:29)
[2018-01-07 09:30] VITALS: BP 114/59; PULSE 89; RESP 18; TEMP 36.3
[2018-01-07 11:54] VITALS: BP 114/60; PULSE 80; RESP 14; TEMP 36.4; O2SAT 96
[2018-01-07 12:17] VITALS: PULSE 80; RESP 14; O2SAT 96
[2018-01-07] MEDS: Acetaminophen 500 MG Tablet 1000 MG PO (14:12)
[2018-01-07] MEDS: Acyclovir 200 MG Capsule 400 MG PO ×2 (14:12→22:07)
[2018-01-07] MEDS: Senna/Docusate Sodium 1 Tablet PO (14:12)
[2018-01-07 15:36] VITALS: BP 108/72; PULSE 82; RESP 18; TEMP 36.3
[2018-01-07 19:55] VITALS: BP 107/69; PULSE 83; RESP 16; TEMP 37
[2018-01-08 01:00] VITALS: BP 104/39; PULSE 64; RESP 16; TEMP 37.1
[2018-01-08 04:20] VITALS: BP 112/67; PULSE 81; RESP 16; TEMP 37.2
[2018-01-08] MEDS: Acetaminophen 500 MG Tablet 1000 MG PO (07:19)
[2018-01-08 08:15] VITALS: BP 100/63; PULSE 82; RESP 14; TEMP 36.7; O2SAT 96
--- NOTE | 2018-01-08 08:15 | PCM.PN.OB ---
Subjective: No complaints. Breast feeding. Bleeding light. Objective: Afeb VSS - Physical Exam General: Alert, Oriented x3, Cooperative, No apparent distress Lungs: Clear to auscultation, Normal air movement Cardiovascular: Regular rate, Regular Rhythm Abdomen: Soft, Non Tender, Non-Distended, - - Fundus nontender Extremities: No edema Skin: No rashes Neurological: Neuro grossly intact Psych/Mental Status: Normal Affect Comment: Lochia light Vital Signs Temp Pulse Resp BP Pulse Ox 98.9 F 81 16 112/67 96 01/08/18 04:20 01/08/18 04:20 01/08/18 04:20 01/08/18 04:20 01/07/18 12:17 Oxygen Delivery Method Room Air Weight: 204 lb 6.4 oz Body Mass Index (BMI) 34.0 Intake and Output for Last 24 Hours 01/06/18 01/07/18 01/08/18 23:59 23:59 23:59 Intake Total 1282 / 1282 Output Total 600 / 600 Balance 682 / 682 Medical Necessity - Tobacco Use Smoking Status: Heavy Smoker (>10/day) Assessment/Plan All Active Problems Herpes genitalia (Acute) UTI (urinary tract infection) (Acute) Doing well on PP day#1. Cleared for discharge home later today if baby cleared for discharge. Home going instructions and warnings given.
--- NOTE | 2018-01-08 08:19 | DCINST_ITS ---
Discharge Diet: No Restrictions Discharge Activity: Return to Normal Activity, No Restrictions, May Drive, May Shower Return to work on:: 02/23/18 May resume sexual activity in: 4-6 weeks Additional Activity Instructions:: Nothing in the vagina for 4-6 weeks. You may return to work/school in 6 weeks. Call your doctor if you observe: Fever of 101 or Higher, Inability to urinate, Inability to have a bowel movement, Using more than one pad per hour, Shortness of breath, Chest pain, Calf discomfort, Uncontrolled pain Cleanse incision/area with: Soap & Water Additional Instructions: If you experience any of the following, contact your healthcare provider. * Bleeding that soaks a pad every hour for 2 hours * Fever 100.4 or higher * Unrelieved incision or abdominal pain * Swelling, redness, discharge or bleeding from your incision or episiotomy site * Your incision begins to separate * Problems urinating (including inability to urinate or burning while urina ting). * Visual changes * Severe headache * Flu-like symptoms * Pain or redness in one of both of your breasts * Pain, warmth, tenderness or swelling in your legs, especially the calf area * Frequent nausea and vomiting * Symptoms of depression or anxiety If you experience any of the following, call 911 or go to the nearest Emergency Room. * Chest pain * Problems breathing * Seizure activity * Partial or complete paralysis of a body part, slurred speech, weakness or drooping of the face, or a sudden inability to walk or hold your balance Allergies/Adverse Reactions: Allergies bee venom protein (honey bee) Allergy (Verified 01/07/18 04:47) Anaphylaxis sulfamethoxazole [From ] Allergy (Verified 01/07/18 04:47) Hives trimethoprim [From ] Allergy (Verified 01/07/18 04:47) Hives Medications to take at Discharge Ondansetron HCl [Zofran] 4 mg PO BID 12/09/17 Pantoprazole Sodium [Protonix] 20 mg PO DAILY 12/09/17 Pediatric Multivit Comb. No.49 [Flintstones Gummies] 1 each PO DAILY 12/09/17 Sertraline HCl [Zoloft] 50 mg PO DAILY 12/09/17 Valacyclovir HCl [Valtrex] 500 mg PO DAILY 12/09/17 Benzonatate [Tessalon Perle] 100 mg PO 4X/DAY PRN PRN 01/06/18 Ibuprofen 600 mg PO 4X/DAY #30 tab 01/08/18 Please Follow Up With: Ruiz Vergara MD When: 6 weeks Primary Care Physician: Care Physician,No Primary [Primary Care Provider] - Test Results: Test results from this visit will be discussed in further detail at your follow- up appointment, if applicable. Proposed Discharge Date: 01/08/18
--- NOTE | 2018-01-08 08:19 | PCM.DC.SUM ---
Discharge Date and Diagnosis Date of Admission: 01/07/18 Date of Discharge: 01/08/18 - Primary Discharge Diagnosis s/p Hospital Course and Treatment Operations: None Procedures: - - Summary of Care Provided: The patient is a 22 year old F admitted in active labor. Progressed to FD then pushed to deliver a live without complication. Post course unremarkable.[] - Physical Exam Vital Signs Temp Pulse Resp BP Pulse Ox 98.9 F 81 16 112/67 96 01/08/18 04:20 01/08/18 04:20 01/08/18 04:20 01/08/18 04:20 01/07/18 12:17 Oxygen Delivery Method Room Air Weight: 204 lb 6.4 oz Body Mass Index (BMI) 34.0 Intake and Output for Last 24 Hours 01/06/18 01/07/18 01/08/18 23:59 23:59 23:59 Intake Total 1282 / 1282 Output Total 600 / 600 Balance 682 / 682 Discharge Diet: No Restrictions Discharge Activity: Return to Normal Activity, No Restrictions, May Drive, May Shower Return to work on:: 02/23/18 May resume sexual activity in: 4-6 weeks Additional Activity Instructions:: Nothing in the vagina for 4-6 weeks. You may return to work/school in 6 weeks. Call your doctor if your incision/area has: Sudden Increased Bleeding, Increased Pain/ Swelling, Foul Smelling Discharge Call your doctor if you observe: Fever of 101 or Higher, Inability to urinate, Inability to have a bowel movement, Using more than one pad per hour, Shortness of breath, Chest pain, Calf discomfort, Uncontrolled pain Cleanse incision/area with: Soap & Water Home Medications: Medications to take at Discharge Ondansetron HCl [Zofran] 4 mg PO BID 12/09/17 Pantoprazole Sodium [Protonix] 20 mg PO DAILY 12/09/17 Pediatric Multivit Comb. No.49 [Flintstones Gummies] 1 each PO DAILY 12/09/17 Sertraline HCl [Zoloft] 50 mg PO DAILY 12/09/17 Valacyclovir HCl [Valtrex] 500 mg PO DAILY 12/09/17 Benzonatate [Tessalon Perle] 100 mg PO 4X/DAY PRN PRN 01/06/18 Ibuprofen 600 mg PO 4X/DAY #30 tab 01/08/18 Following Prescrptions Were Given to Patient: Ibuprofen 600 mg PO 4X/DAY #30 tab Primary Care Physician: Care Physician,No Primary [Primary Care Provider] - Please Follow Up With: Ruiz Vergara MD Medical Necessity - Tobacco Use Smoking Status: Heavy Smoker (>10/day) Meaningful Use Info Meaningful Use Diagnoses (Choose all that apply): None applicable
[2018-01-08] MEDS: Sertraline 50 MG Tablet PO (10:55)
[2018-01-08] MEDS: Acyclovir 200 MG Capsule 400 MG PO (10:55)
[2018-01-08 13:30] VITALS: BP 139/77; PULSE 83; RESP 16; TEMP 36.9; O2SAT 96
--- NOTE | 2018-01-13 19:27 | NURSING ---
Denies problems or questions, follow up phone call done, satisfied with care
== END 2018-01-08 14:15 | disposition home or self-care (01) | DRG 560 ==
PROVIDERS: Admitting Provider Obstetrics & Gynecology; Visit Provider Obstetrics & Gynecology
DX: O98.32 Other infections with a predominantly sexual mode of transmission complicating childbirth (principal); A60.00 Herpesviral infection of urogenital system, unspecified; Z3A.37 37 weeks gestation of pregnancy; Z37.0 Single live birth; O99.334 Smoking (tobacco) complicating childbirth; F17.200 Nicotine dependence, unspecified, uncomplicated; Z23 Encounter for immunization; Z87.440 Personal history of urinary (tract) infections; Z79.899 Other long term (current) drug therapy; O71.5 Other obstetric injury to pelvic organs
CPT/HCPCS: 59025; 59050; 84112; 85027; 86850; 86900; 99218; J7120; 90686; G0378; J2405

== ENCOUNTER 2018-03-25 07:13 | Day surgery (SDC) | payer MEDICAID, SELFPAY ==
[2018-03-19 16:19] LABS: Hematocrit 42.5 % (37-47); Hemoglobin 14.4 g/dl (12.0-15.0); Mean Corp Hgb Conc 33.9 g/gl (32-36); Mean Corpuscular Hgb 29.9 pg (27.0-32.0); Mean Corpuscular Volume 88.2 fL (81-99); Mean Platelet Vol. 10.6 fl (6.2-12.0); Platelet Count 342 K/mm3 (150-450); RBC Distribution Width CV 12.9 % (11.6-14.6); RBC Distribution Width SD 41.4 fl (35.1-43.9); Red Blood Count 4.82 M/mm3 (4.2-5.4); White Blood Count 8.4 K/mm3 (4.4-11.0)
[2018-03-19 16:20] LABS: Scan Indicated on CBC? Y/N NO
[2018-03-19 16:39] LABS: Prothrombin Time (Protime)PT. 13.4 SECONDS (11.7-14.9)
[2018-03-19 16:49] LABS: Pregnancy, Serum, hCG Quali. NEGATIVE Negative (0-9 Nonpreg)
[2018-03-25 07:28] VITALS: BP 110/63; PULSE 80; RESP 18; TEMP 36.3; O2SAT 100; BMI 33.1
[2018-03-25 07:34] LABS: Internal QC Validated? YES +Cl - CLEAR BKGD; Pregnancy, Urine Negative Negative
--- NOTE | 2018-03-25 08:55 | FALS_PTH ---
PATIENT: PEPPER WARNER LOC: [facility] [place] U#:[id number] AGE/SX: ROOM: RE03/25/[address]: Dr. Ruiz Vergara MD : 1995 BED: DIS: 03/25/2018 SPEC #: [id number] RECD: 03/25/18 09:58 STATUS: NANNETTE CHELI #: [id number] BEN: 03/25/18 08:[address]: Ruiz Vergara DEPT: SURGICAL PATHOLOGY RECD BY: Noel Escobar ENTERED: 03/25/18 11:02 SP TYPE: FALL TUBES OTHR DR: No Primary Care Phys Tissues: Fallopian tube Procedures: Surgery Specimen Level II Surgery Specimen Level IV HEADER OPERATION: Laparoscopic salpingectomy, bilateral PRE-OP DIAGNOSIS: Sterilization request TISSUE SUBMITTED: Bilateral fallopian tubes MICROSCOPIC DIAGNOSIS Right and left fallopian tubes, bilateral salpingectomies: Complete cross-sections of fallopian tubes with no pathologic change. Cyst, not otherwise specified, excision: Consistent with benign paratubal cyst. AM:odilon 03/26/18 MICROSCOPIC DESCRIPTION Slides are reviewed. GROSS DESCRIPTION Received is one container labeled with the patient's name and designated bilateral fallopian tubes. The specimen consists of two fallopian tubes with an average length of 7 cm and has a maximal diameter of 0.5 cm. Both fallopian tubes have normal fimbriated ends. No mass lesions are identified. One fallopian tube is inked. Also present in the specimen container is a smooth glistening lloyd cyst measuring in aggregate 1 x 0.7 cm. Parts Clerk sections are submitted one cassette including presumed cysts. / AM:odilon 03/25/18 TC:5 CPT: 95808 x2, 85623
--- NOTE | 2018-03-25 09:05 | DCINST_ITS ---
- Discharge Diagnoses Reason(s) for Visit for Discharge Instructions: S/P laparoscopic bilateral salpingectomy You will use the following diet at home:: No restrictions Your food should be the consistency of: Regular Discharge Activity: Return to Normal Activity, May Drive, May not drive while taking narcotic pain medications., May Shower Return to work on:: 03/30/18 May shower in (days): 0 May resume sexual activity in: 2 weeks Call your doctor if your incision/area has: Sudden Increased Bleeding, Increased Pain/ Swelling, Increased Redness, Foul Smelling Discharge, Swelling at the incision site Call your doctor if you observe: Fever of 101 or Higher, Inability to urinate, Inability to have a bowel movement, Using more than one pad per hour, Shortness of breath, Chest pain, Calf discomfort, Uncontrolled pain Remove Dressing in (days):: 2 Cleanse incision/area with: Soap & Water Allergies/Adverse Reactions: Allergies bee venom protein (honey bee) Allergy (Verified 03/18/18 13:04) Anaphylaxis sulfamethoxazole [From Septra] Allergy (Verified 03/18/18 13:04) Hives trimethoprim [From Novra] Allergy (Verified 03/18/18 13:04) Hives Medications to take at Discharge Valacyclovir HCl [Valtrex] 500 mg PO DAILY 12/09/17 Albuterol Inhaler [Ventolin Hfa] 1 - 2 puff INHALATION Q4H PRN PRN 03/18/18 Citalopram [Celexa] 20 mg PO DAILY 03/18/18 Ibuprofen 600 mg PO 4X/DAY #30 tab 03/25/18 Oxycodone [Oxyir] 5 mg PO Q4H PRN PRN 7 Days #20 tab 03/25/18 The following prescriptions were given: Oxycodone [Oxyir] 5 mg PO Q4H PRN PRN 7 Days #20 tab PRN Reason: Severe Pain (6-10/10) Ibuprofen 600 mg PO 4X/DAY #30 tab Primary Care Physician: Care Physician,No Primary [Primary Care Provider] - Test Results: Test results from this visit will be discussed in further detail at your follow- up appointment, if applicable. Please Follow Up With: Ruiz Vergara MD When: one week Proposed Discharge Date: 03/25/18
--- NOTE | 2018-03-25 09:07 | OP.PCM_ITS ---
Report of Operation Date of Procedure: 03/25/18 Pre-Operative Diagnosis: Requests Permanent Sterilization Post-Operative Diagnosis: Same Surgery/Procedure Performed:: Laparoscopic Bilateral Salpingectomy Description of Surgical Findings:: Normal appearing uterus, cervix, ovaries, and fallopian tubes. Normal appearing liver, gallbladder, and stomach. No pelvic or abdominal scarring or adhesions noted. professor of physical education: Rachele Sheikh Type of Anesthesia:: General Anesthesiologist: Brian Lynn Special Medications: none Specimen's removed: Right and left fallopian tubes Drains: none Estimated Blood Loss (mL): minimal Fluids Replaced: 600cc LR Description of Procedure: Renetta reconfirmed her desire for sterilization prior to the procedure. She was taken to the OR with IV running. She was given two grams of Cefotetan intravenously prior to the procedure. General anesthesia was introduced without complication. SHe was prepped and draped in the dorsal lithotomy position. A red rubber catheter was used to drain the bladder. A uterine manipulator was then placed. Attention was then directed to the abdomen. A 5 mm vertical incision was made in the lower base of the umbilicus. The subcutaneous tissue was then dissected bluntly with a Holly clamp down to the level of the fascia. The abdominal wall was then elevated and a Veress needle was placed through the umbilical defect into the abdomen. The abdominal cavity was then inflated with CO2 gas to a pressure of 15 Torr. The Veress needle was then removed and replaced with a 5mm trocar and sleeve. The trocar was removed and replaced with the laparoscope. Findings were as detailed above. Two lateral laparoscopic 5 mm ports were placed both about 4 cm below the level of the umbilicus lateral to the inferior epigastric vessels one on the right and one on the left. The left fallopian tube was then grasped at the fimbriated end and elevated. The mesosalpinx was then dissected from the fimbriated end to the cornua of the uterus using the Ligasure device. The tube was then amputated at the cornua and removed through the side port. In a similar fashion the right fallopian tube was dissected and removed. Hemostasis was excellent. The laparoscopic ports were then removed. The CO2 gas was evacuated. The skin incisions were closed with 4-0 Monocryl. The incisions were injected with 0.25% Marcaine. The uterine manipulator was removed. Sponge, needle, and instrument counts were correct. She was reversed from anesthesia and taken to the recovery room in stable condition. Grafts/Implants Used: none - Complications none - Admit VTE Documentation VTE Present on Admission: No VTE Mechan Device Prophylaxis: SCD's VTE Pharm Prophylaxis ordered?: No
[2018-03-25] MEDS: Bupivacaine 0.25% 30 ML Vial (09:34)
[2018-03-25 09:50] VITALS: BP 110/63; BP 116/66; PULSE 88; RESP 16; TEMP 36.4; O2SAT 97
[2018-03-25 10:00] VITALS: BP 100/48; BP 110/63; PULSE 84; RESP 14; O2SAT 94
[2018-03-25 10:15] VITALS: BP 109/69; BP 110/63; PULSE 75; RESP 16; TEMP 36.3; O2SAT 98
[2018-03-25] MEDS: Lactated Ringers 1,000 ML 125 ML IV (10:31)
[2018-03-25] MEDS: oxyCODONE 5 MG Tablet PO (10:32)
[2018-03-25 11:12] VITALS: BP 110/63; BP 111/78; PULSE 60; RESP 16; TEMP 36.2; O2SAT 100
--- OUTSIDE RECORDS SUMMARY | 2018-05-27 01:51 | XMS RPT_ITS ---
:1995 Author Organization OHIP Support Name Relationship Address Phone KYE AUGUSTIN Unavailable [address] + [address] [place] [address] UE Unavailable Unavailable Unavailable KYE AUGUSTIN Unavailable [address] + [place] [address] UE Unavailable Unavailable Unavailable KYE AUGUSTIN Unavailable [address] + [place] [address] UE Unavailable Unavailable Unavailable KYE AUGUSTIN Unavailable [address] + [place] [address] UE Unavailable Unavailable Unavailable ANIBAL KYE Unavailable [address] + [place] [address] UE Unavailable Unavailable Unavailable ANIBAL KYE Unavailable [address] + [place] [address] UE Unavailable Unavailable Unavailable AUGUSTIN KYE Unavailable [address] + [place] [address] UE Unavailable Unavailable Unavailable ANIBAL KYE Unavailable [address] + [place] [address] UE Unavailable Unavailable Unavailable ANIBAL KYE Unavailable [address] + [place] [address] UE Unavailable Unavailable Unavailable ANIBAL KYE Unavailable [address] + [place] [address] UE Unavailable Unavailable Unavailable ANIBAL KYE Unavailable [address] + [place] [address] UE Unavailable Unavailable Unavailable DELON GRISSOM Unavailable [address] + [place] [address] GRISSOM, PENELOPY Unavailable [address] + [place] [address] GRISSOM, PENELOPY Unavailable [address] + [place] [address] GRISSOM, PENELOPY Unavailable [address] + [place] [address] GRISSOM, PENELOPY Unavailable [address] + [place] [address] GRISSOM, PENELOPY Unavailable [address] + [place] [address] GRISSOM, PENELOPY Unavailable [address] + [place] [address] GRISSOM, PENELOPY Unavailable [address] + [place] [address] Care Team Providers Name Role Phone ANTONINO FLAQUITO Santo Attending Unavailable MARIANA NELSON Referring Unavailable SANKET, DUDLEY K Primary Care Unavailable SANFORD ENAMORADO Attending Unavailable MARIANA NELSON Referring Unavailable SANKET, DUDLEY K Primary Care Unavailable DIAMOND SALAZAR Attending Unavailable MARIANA NELSON L Referring Unavailable SANKET, DUDLEY K Primary Care Unavailable SANFORD ENAMORADO Attending Unavailable SANFORD ENAMORADO Referring Unavailable SANKET, DUDLEY K Primary Care Unavailable SARANBRITTNEY Attending Unavailable SARAN, BRITTNEY Referring Unavailable SARAN, BRITTNEY Attending Unavailable SARAN, BRITTNEY Referring Unavailable SARAN, BRITTNEY Attending Unavailable SARAN, BRITTNEY Referring Unavailable Seals, Ruiz Attending Unavailable Seals, Ruiz Referring Unavailable Primay Care Physicia, No Primary Care Unavailable Seals, Ruiz Attending Unavailable BenekoAnahi chatman Attending Unavailable Seals, Ruiz Attending Unavailable Seals, Ruiz Attending Unavailable Seals, Ruiz Referring Unavailable Seals, Ruiz Attending Unavailable Seals, Ruiz Referring Unavailable Primay Care Physicia, No Primary Care Unavailable Masoud Lynn Attending Unavailable Masoud Lynn Referring Unavailable Primay Care Physicia, No Primary Care Unavailable Seals, Ruiz Attending Unavailable Primay Care Physicia, No Primary Care Unavailable Seals, Ruiz Attending Unavailable Primay Care Physicia, No Primary Care Unavailable Anahi Eason Attending Unavailable Anahi Eason Referring Unavailable Primay Care Physicia, No Primary Care Unavailable Anahi Eason Admitting Unavailable Anahi Eason Attending Unavailable Primay Care Physicia, No Primary Care Unavailable PROBLEMS PROBLEMS DATE TYPE CONDITION / CODE ATTENDING STATUS SOURCE 03/25/2018 Unknown G89.18 - Other acute SealRuiz chatman postprocedural pain Community / G89.18(ICD-10) Hospital Repository 01/02/2018 Unknown Z34.83 - Encounter Jai Ruiz Beltran for supervision of Community other normal Hospital , third Repository trimester / Z34.83(ICD-10) 12/29/2017 Unknown O62.9 - Abnormality SealRuiz chatman of forces of labor, [facility] unspecified / Hospital O62.9(ICD-10) Repository 12/24/2017 Unknown O60.03 - WeMasoud whitehead Active Ruby labor without Community delivery, third Hospital trimester / Repository O60.03(ICD-10) 12/04/2017 Unknown Z34.82 - Encounter Sealcompa Ruiz Beltran for supervision of [facility] other normal Hospital , second Repository trimester / Z34.82(ICD-10) 07/02/2017 Admitting Hematuria, NA Active Loaded [facility] unspecified / [place] R31.9(ICD-10) Repository 06/11/2017 Admitting Amenorrhea, SARAN, Active Loaded [facility] unspecified / BR[place] [facility] ([place] N91.2(ICD-10) Repository 06/11/2017 Admitting Encounter for SARAN, Active Loaded [facility] test, BR[place]NEY [facility] [place] result positive / Repository Z32.01(ICD-10) 06/08/2017 Admitting Nausea with NA Active Loaded [facility] vomiting, [place] unspecified / [place]ository R11.2(ICD-10) 06/08/2017 Admitting Diarrhea, NA Active Loaded [facility] [place] R19.7(ICD-10) Repository 06/08/2017 Admitting Encounter for NA Active Loaded [facility] supervision of [facility] [place] normal , Repository unspecified, unspecified trimester / Z34.90(ICD-10) PROCEDURES PROCEDURES No Procedure Records FoundRESULTS RESULTS OPERATIVE REPORT Observed: 03/25/2018 Status: F Source: [place] 9:45 AM [facility]PITAL REPOSITORY [facility] Medical Records Department [address] [place] [address] Operative Report 03/25/18 0905 MR#: [id number] Acct: [id number] Name: PEPPER PANG Rep #: [id number] : 1995 From: Ruiz Vergara MD PCP: Care Physician, No Primary Status: REG [facility] Y Location: [place] [address] Report of Operation Date of Procedure: 03/25/18 Pre-Operative Diagnosis: Requests Permanent Sterilization Post-Operative Diagnosis: Same Surgery/Procedure Performed:: Laparoscopic Bilateral Salpingectomy Description of Surgical Findings:: Normal appearing uterus, cervix, ovaries, and fallopian tubes. Normal appearing liver, gallbladder, and stomach. No pelvic or abdominal scarring or adhesions noted. cash clerk: Rachele Sheikh Type of Anesthesia:: General Anesthesiologist: Brian Lynn Special Medications: none Specimen's removed: Right and left fallopian tubes Drains: none Estimated Blood Loss (mL): minimal Fluids Replaced: 600cc LR Description of Procedure: Pepper reconfirmed her desire for sterilization prior to the procedure. She was taken to the OR with IV running. She was given two grams of Cefotetan intravenously prior to the procedure. General anesthesia was introduced without complication. SHe was prepped and draped in the dorsal lithotomy position. A red rubber catheter was used to drain the bladder. A uterine manipulator was then placed. Attention was then directed to the abdomen. A 5 mm vertical incision was made in the lower base of the umbilicus. The subcutaneous tissue was then dissected bluntly with a Holly clamp down to the level of the fascia. The abdominal wall was then elevated and a Veress needle was placed through the umbilical defect into the abdomen. The abdominal cavity was then inflated with CO2 gas to a pressure of 15 Torr. The Veress needle was then removed and replaced with a 5mm trocar and sleeve. The trocar was removed and replaced with the laparoscope. Findings were as detailed above. Two lateral laparoscopic 5 mm ports were placed both about 4 cm below the level of the umbilicus lateral to the inferior epigastric vessels one on the right and one on the left. The left fallopian tube was then grasped at the fimbriated end and elevated. The mesosalpinx was then dissected from the fimbriated end to the cornua of the uterus using the Ligasure device. The tube was then amputated at the cornua and removed through the side port. In a similar fashion the right fallopian tube was dissected and removed. Hemostasis was excellent. The laparoscopic ports were then removed. The CO2 gas was evacuated. The skin incisions were closed with 4-0 Monocryl. The incisions were injected with 0.25% Marcaine. The uterine manipulator was removed. Sponge, needle, and instrument counts were correct. She was reversed from anesthesia and taken to the recovery room in stable condition. Grafts/Implants Used: none - Complications none - Admit VTE Documentation VTE Present on Admission: No VTE Mechan Device Prophylaxis: SCD's VTE Pharm Prophylaxis ordered?: No 03/25/18 0945 <Electronically signed by Ruiz Vergara MD> Date Ruiz Vergara MD CC: No Primary Care Physician; Ruiz Vergara MD Signed DISCHARGE INSTRUCTION Observed: 03/25/2018 Status: F Source: [place] 9:05 AM [facility] REPOSITORY [facility] Medical Records Department [address] [place] [address] Instructions for Home/Discharge Instructions 03/25/1803 MR#: [id number] Acct: [id number] Name: PEPPER PANG Rep #: [id number] : 1995 From: Ruiz Vergara MD PCP: Care Physician, No Primary Status: REG SDC - Discharge Diagnoses Reason(s) for Visit for Discharge Instructions: S/P laparoscopic bilateral salpingectomy You will use the following diet at home:: No restrictions Your food should be the consistency of: Regular Discharge Activity: Return to Normal Activity, May Drive, May not drive while taking narcotic pain medications., May Shower Return to work on:: 03/30/18 May shower in (days): 0 May resume sexual activity in: 2 weeks Call your doctor if your incision/area has: Sudden Increased Bleeding, Increased Pain/ Swelling, Increased Redness, Foul Smelling Discharge, Swelling at the incision site Call your doctor if you observe: Fever of 101 or Higher, Inability to urinate, Inability to have a bowel movement, Using more than one pad per hour, Shortness of breath, Chest pain, Calf discomfort, Uncontrolled pain Remove Dressing in (days):: 2 Cleanse incision/area with: Soap AND Water Allergies/Adverse Reactions: Allergies bee venom protein (honey bee) Allergy (Verified 03/18/18 13:04) Anaphylaxis sulfamethoxazole [From ] Allergy (Verified 03/18/18 13:04) Hives trimethoprim [From ] Allergy (Verified 03/18/18 13:04) Hives Medications to take at Discharge Valacyclovir HCl [Valtrex] 500 mg PO DAILY 12/09/17 Albuterol Inhaler [Ventolin Hfa] 1 - 2 puff INHALATION Q4H PRN PRN 03/18/18 Citalopram [Celexa] 20 mg PO DAILY 03/18/18 Ibuprofen 600 mg PO 4X/DAY #30 tab 03/25/18 Oxycodone [Oxyir] 5 mg PO Q4H PRN PRN 7 Days #20 tab 03/25/18 The following prescriptions were given: Oxycodone [Oxyir] 5 mg PO Q4H PRN PRN 7 Days #20 tab PRN Reason: Severe Pain (6-12/10) Ibuprofen 600 mg PO 4X/DAY #30 tab Primary Care Physician: Care Physician,No Primary [Primary Care Provider] - Test Results: Test results from this visit will be discussed in further detail at your follow-up appointment, if applicable. Please Follow Up With: Ruiz Vergara MD When: one week Proposed Discharge Date: 03/25/18 03/25/18904 <Electronically signed by Ruiz Vergara MD> Date Ruiz Vergara MD CC: No Primary Care Physician Signed FALLOPIAN TUBES/STERILIZATION Observed: 03/25/2018 Status: F Source: [place] 8:55 AM [facility] REPOSITORY Patient: PEPPER PANG : 1995 () Acct Num: [id number] Phys: Ruiz Vergara MD Unit Num: [id number] Loc: [facility] Specimen: [id number] Received: 03/25/18957 Spec Type: FALL TUBES TISSUES 1 TISSUES: Fallopian tube GROSS DESCRIPTION Received is one container labeled with the patient's name and designated bilateral fallopian tubes. The specimen consists of two fallopian tubes with an average length of 7 cm and has a maximal diameter of 0.5 cm. Both fallopian tubes have normal fimbriated ends. No mass lesions are identified. One fallopian tube is inked. Also present in the specimen container is a smooth glistening lloyd cyst measuring in aggregate 1 x 0.7 cm. Plastic Card Grader Cardroom sections are submitted one cassette including presumed cysts. / AM:odilon 03/25/18 TC:5 CPT: 33009 x2, 19228 HEADER OPERATION: Laparoscopic salpingectomy, bilateral PRE-OP DIAGNOSIS: Sterilization request TISSUE SUBMITTED: Bilateral fallopian tubes MICROSCOPIC DESCRIPTION Slides are reviewed. MICROSCOPIC DIAGNOSIS Right and left fallopian tubes, bilateral salpingectomies: Complete cross-sections of fallopian tubes with no pathologic change. Cyst, not otherwise specified, excision: Consistent with benign paratubal cyst. AM:odilon 03/26/18 Signed Alfred Radha, DO 03/26/18 <signature on file> Performed By: #### PFALS #### [facility] [address]. [place], [place], [address] ,URINE Collected: 03/25/2018 Status: F Source: [place] 7:22 AM [facility] REPOSITORY Order Comment: Send Results To: LAB Reason for Laboratory Test PREOP TYPE CODE TESTS RESULT OUT OF REFERENCE UNITS RANGE LAB L400.8000 Negative Normal HCGUQUAL Negative Result Comment: Very dilute urine specimens, as indicated by a low specific gravity, may not contain senior account representative levels of hCG. If is still suspected, a first morning urine specimen should be collected 48 hours later and tested. Performed By: #### L400.7600 #### [facility] [address] [place], [address] CBC-COMPLETE BLOOD CNT Collected: 03/19/2018 Status: F Source: [place] NO DIFF 3:37 PM [facility] REPOSITORY TYPE CODE TESTS RESULT OUT OF RANGE REFERENCE UNITS LAB L100.1000 4.4-11.0 K/mm3 Normal WBC 8.4 LAB L100.1200 4.2-5.4 M/mm3 Normal RBC 4.82 LAB L100.1300 12.0-15.0 g/dl Normal HGB 14.4 LAB L100.1400 37-47 % Normal HCT 42.5 LAB L100.1500 81-99 fL Normal MCV 88.2 LAB L100.1600 27.0-32.0 pg Normal MCH 29.9 LAB L100.1700 32-36 g/gl Normal MCHC 33.9 LAB L100.1810 11.6-14.6 % Normal RDW CV 12.9 LAB L100.1820 35.1-43.9 fl Normal RDW SD 41.4 LAB L100.1900 150-450 K/mm3 Normal PLT 342 LAB L100.2000 6.2-12.0 fl Normal MPV 10.6 Performed By: #### L100.0500 #### [facility] [address] [place], [place], [id number] PROTHROMBIN TIME W/INR Collected: 03/19/2018 Status: F Source: [place] 3:37 PM [facility] REPOSITORY TYPE CODE TESTS RESULT OUT OF RANGE REFERENCE UNITS LAB L300.4150 11.7-14.9 SECONDS Normal PROTIME 13.4 LAB L300.4200 Normal INR 1.0 Performed By: #### L300.3900, L300.4310 #### [facility] [address] [place], [address] PARTIAL THROMBOPLAST Collected: 03/19/2018 Status: F Source: [place] TIME 3:37 PM [facility] REPOSITORY TYPE CODE TESTS RESULT OUT OF RANGE REFERENCE UNITS LAB L300.4310 24.1-36.2 Seconds Normal PTT 27.0 Performed By: #### L300.3900, L300.4310 #### [facility] [address] [place], [address] ,SERUM,HCG QUALI. Collected: Status: F Source: [place] 03/19/2018 3:37 PM [facility] REPOSITORY TYPE CODE TESTS RESULT OUT OF REFERENCE UNITS RANGE LAB L700.7000 0-9 Nonpreg Negative Normal HCGSQUAL NEGATIVE LAB L700.6700 =>Qualitative mIU/mL Normal HCG Qual < 1 triggr Performed By: #### L700.6800 #### [facility] [address] [place], [address] TYPE AND SCREEN Collected: 03/19/2018 Status: F Source: [place] 3:37 PM [facility] REPOSITORY Order Comment: Surgery Date: 03/25/18 Date of Last Transfusion (if within last 3 months) N Hx of Preganancy in last 3 Months Yes Ever experience any problems with transfusion(s)? N Hx of Transfusion in last 3 Months N Reason for Type AND Screen/Red Cells: SURGERY Time: 0600 SURGICAL PROCEDURE: TUBAL LIGATION TYPE CODE TESTS RESULT OUT OF RANGE REFERENCE UNITS LAB B10.0800 AB Normal BLOOD TYPE GEL POSITIVE LAB B100.4000 Normal Antibody NEGATIVE Screen Performed By: #### B101.7475 #### [facility] [address] [place], [address] DISCHARGE SUMMARY Observed: 01/08/2018 Status: F Source: [place] 8:21 AM [facility] REPOSITORY [facility] Medical Records Department [address] [place] [address] Discharge Summary 01/08/18 0819 MR#: [id number] Acct: [id number] Name: PEPPER PANG Rep #: [id number] : 1995 22 From: Ruiz Vergara MD PCP: Care Physician, No Primary Status: ADM IN Location: [place] [address] Discharge Date and Diagnosis Date of Admission: 01/07/18 Date of Discharge: 01/08/18 - Primary Discharge Diagnosis s/p Hospital Course and Treatment Operations: None Procedures: - - Summary of Care Provided: The patient is a 22 year old F admitted in active labor. Progressed to FD then pushed to deliver a live without complication. Post course unremarkable.[] - Physical Exam Vital Signs Temp Pulse Resp BP Pulse Ox 98.9 F 81 16 112/67 96 01/08/18 04:20 01/08/18 04:20 01/08/18 04:20 01/08/18 04:20 01/07/18 12:17 Oxygen Delivery Method Room Air Weight: 204 lb 6.4 oz Body Mass Index (BMI) 34.0 Intake and Output for Last 24 Hours Intake Total 1282 / 1282 Output Total 600 / 600 Balance 682 / 682 Discharge Diet: No Restrictions Discharge Activity: Return to Normal Activity, No Restrictions, May Drive, May Shower Return to work on:: 02/23/18 May resume sexual activity in: 4-6 weeks Additional Activity Instructions:: Nothing in the vagina for 4-6 weeks. You may return to work/school in 6 weeks. Call your doctor if your incision/area has: Sudden Increased Bleeding, Increased Pain/ Swelling, Foul Smelling Discharge Call your doctor if you observe: Fever of 101 or Higher, Inability to urinate, Inability to have a bowel movement, Using more than one pad per hour, Shortness of breath, Chest pain, Calf discomfort, Uncontrolled pain Cleanse incision/area with: Soap AND Water Home Medications: Medications to take at Discharge Ondansetron HCl [Zofran] 4 mg PO BID 12/09/17 Pantoprazole Sodium [Protonix] 20 mg PO DAILY 12/09/17 Pediatric Multivit Comb. No.49 [Flintstones Gummies] 1 each PO DAILY 12/09/17 Sertraline HCl [Zoloft] 50 mg PO DAILY 12/09/17 Valacyclovir HCl [Valtrex] 500 mg PO DAILY 12/09/17 Benzonatate [Tessalon Perle] 100 mg PO 4X/DAY PRN PRN 01/06/18 Ibuprofen 600 mg PO 4X/DAY #30 tab 01/08/18 Following Prescrptions Were Given to Patient: Ibuprofen 600 mg PO 4X/DAY #30 tab Primary Care Physician: Care Physician,No Primary [Primary Care Provider] - Please Follow Up With: Ruiz Vergara MD Medical Necessity - Tobacco Use Smoking Status: Heavy Smoker (>10/day) Meaningful Use Info Meaningful Use Diagnoses (Choose all that apply): None applicable 01/08/18820 <Electronically signed by Ruiz Vergara MD> Date Ruiz Vergara MD Cosigner Signature (if applicable): Date CC: No Primary Care Physician; Ruiz Vergara MD Signed DISCHARGE INSTRUCTION Observed: 01/08/2018 Status: F Source: [place] 8:19 AM [facility] REPOSITORY [facility] Medical Records Department [address] [place] [address] Instructions for Home/Discharge Instructions 01/08/18 0817 MR#: [id number] Acct: [id number] Name: PEPPER PANG Rep #: [id number] : 1995 22 From: Ruiz Vergara MD PCP: Care Physician, No Primary Status: ADM IN Discharge Diet: No Restrictions Discharge Activity: Return to Normal Activity, No Restrictions, May Drive, May Shower Return to work on:: 02/23/18 May resume sexual activity in: 4-6 weeks Additional Activity Instructions:: Nothing in the vagina for 4-6 weeks. You may return to work/school in 6 weeks. Call your doctor if you observe: Fever of 101 or Higher, Inability to urinate, Inability to have a bowel movement, Using more than one pad per hour, Shortness of breath, Chest pain, Calf discomfort, Uncontrolled pain Cleanse incision/area with: Soap AND Water Additional Instructions: If you experience any of the following, contact your healthcare provider. * Bleeding that soaks a pad every hour for 2 hours * Fever 100.4 or higher * Unrelieved incision or abdominal pain * Swelling, redness, discharge or bleeding from your incision or episiotomy site * Your incision begins to separate * Problems urinating (including inability to urinate or burning while urinating). * Visual changes * Severe headache * Flu-like symptoms * Pain or redness in one of both of your breasts * Pain, warmth, tenderness or swelling in your legs, especially the calf area * Frequent nausea and vomiting * Symptoms of depression or anxiety If you experience any of the following, call 911 or go to the nearest Emergency Room. * Chest pain * Problems breathing * Seizure activity * Partial or complete paralysis of a body part, slurred speech, weakness or drooping of the face, or a sudden inability to walk or hold your balance Allergies/Adverse Reactions: Allergies bee venom protein (honey bee) Allergy (Verified 01/07/18 04:47) Anaphylaxis sulfamethoxazole [From Septra] Allergy (Verified 01/07/18 04:47) Hives trimethoprim [From Novra] Allergy (Verified 01/07/18 04:47) Hives Medications to take at Discharge Ondansetron HCl [Zofran] 4 mg PO BID 12/09/17 Pantoprazole Sodium [Protonix] 20 mg PO DAILY 12/09/17 Pediatric Multivit Comb. No.49 [Flintstones Gummies] 1 each PO DAILY 12/09/17 Sertraline HCl [Zoloft] 50 mg PO DAILY 12/09/17 Valacyclovir HCl [Valtrex] 500 mg PO DAILY 12/09/17 Benzonatate [Tessalon Perle] 100 mg PO 4X/DAY PRN PRN 01/06/18 Ibuprofen 600 mg PO 4X/DAY #30 tab 01/08/18 Please Follow Up With: Ruiz Vergara MD When: 6 weeks Primary Care Physician: Care Physician,No Primary [Primary Care Provider] - Test Results: Test results from this visit will be discussed in further detail at your follow-up appointment, if applicable. Proposed Discharge Date: 01/08/18 01/08/18818 <Electronically signed by Ruiz Vergara MD> Date Ruiz Vergara MD CC: No Primary Care Physician DISCHARGE INSTRUCTION Observed: 01/07/2018 Status: F Source: [place] 3:59 AM [facility] REPOSITORY [facility] Medical Records Department [address] [place] [address] Instructions for Home/Discharge Instructions 01/07/18 0357 MR#: [id number] Acct: [id number] Name: PEPPER PANG Rep #: [id number] : 1995 22 From: Anahi Eason MD PCP: Care Physician, No Primary Status: ADM IN Discharge Diet: No Restrictions Return to work on:: 02/23/18 May resume sexual activity in: 4-6 weeks Additional Activity Instructions:: Nothing in the vagina for 4-6 weeks. You may return to work/school in 6 weeks. Additional Instructions: If you experience any of the following, contact your healthcare provider. * Bleeding that soaks a pad every hour for 2 hours * Fever 100.4 or higher * Unrelieved abdominal pain * * Problems urinating (including inability to urinate or burning while urinating). * Visual changes * Severe headache * Flu-like symptoms * Pain or redness in one of both of your breasts * Pain, warmth, tenderness or swelling in your legs, especially the calf area * Frequent nausea and vomiting * Symptoms of depression or anxiety If you experience any of the following, call 911 or go to the nearest Emergency Room. * Chest pain * Problems breathing * Seizure activity * Partial or complete paralysis of a body part, slurred speech, weakness or drooping of the face, or a sudden inability to walk or hold your balance Allergies/Adverse Reactions: Allergies bee venom protein (honey bee) Allergy (Verified 12/09/17 16:01) Anaphylaxis sulfamethoxazole [From Novra] Allergy (Verified 12/09/17 16:01) Hives trimethoprim [From ] Allergy (Verified 12/09/17 16:01) Hives Medications to take at Discharge Ondansetron HCl [Zofran] 4 mg PO BID 12/09/17 Pantoprazole Sodium [Protonix] 20 mg PO DAILY 12/09/17 Pediatric Multivit Comb. No.49 [Flintstones Gummies] 1 each PO DAILY 12/09/17 Sertraline HCl [Zoloft] 50 mg PO DAILY 12/09/17 Valacyclovir HCl [Valtrex] 500 mg PO DAILY 12/09/17 Benzonatate [Tessalon Perle] 100 mg PO 4X/DAY PRN PRN 01/06/18 Please Follow Up With: Ruiz Vergara MD - [phone] When: Call to make an appointment with your doctor in 6 weeks. If you had elevated Blood Pressure or 4th degree laceration you will need to be seen in 2 weeks. Primary Care Physician: Care Physician,No Primary [Primary Care Provider] - Test Results: Test results from this visit will be discussed in further detail at your follow-up appointment, if applicable. Proposed Discharge Date: 01/09/18 01/07/18 0359 <Electronically signed by Anahi Eason MD> Date Anahi Eason MD CC: No Primary Care Physician OPERATIVE REPORT Observed: 01/07/2018 Status: F Source: [place] 3:57 AM [facility] REPOSITORY [facility] Medical Records Department [address] [place] [address] Operative Report 01/07/18 0352 MR#: [id number] Acct: [id number] Name: PEPPER PANG Rep #: [id number] : 1995 22 From: Anahi Eason MD PCP: Care Physician, No Primary Status: ADM IN Location: [place] [address] Vaginal Delivery Maternal Presentation: Active Labor Amniotic Membrane Rupture Type: Artificial Amniotic Fluid Description: Clear Final FARHAT: 01/28/18 Gestational age: 37 Weeks and 0 Days Date of Procedure: 01/07/18 Pre-Operative Diagnosis: 37 wk labor Post-Operative Diagnosis: same Surgery/ Procedure Performed: Spontaneous Vaginal Delivery Anesthesiologist: Jessica Lopez Type of Anesthesia: Epidural Description of Procedure: of a james viable male over intact perineum to laceration. head delivered RONNIE. Shoulders delivered immediately after VTX due to maternal expulsive effeort. OP and nares bulb suctioned on maternal abdomen. Delayed cord clamping employed. Cord clamped x two and cut. PP exam : 1st deg cynthia-clitoral laceration. repaired under epidural and 1% lidocaine local to hemostatic and intact with 3-0 Vicryl Rapide. No other repair Placenta delivered by spont expulsion, expression. 3V cord normal appearing, intact with trailing membranes. EBL 250 Patient and infant gopi delivery well. To recovery, stable condition. Ray Edie counts correct x two. Presentation: Vertex, RONNIE Placental Delivery Description: Spontaneous, Expressed Placenta Disposition: [facility] Cord Vessel Description: 3 Vessels Cord Entanglement: None Estimated Blood Loss: 250 Infant A gender: Male (1 minute): 8 (5 minute): 10 Episiotomy Description: None Laceration: Perineal Extension/lac, 1st degree - periclitoral 1st deg Medications given after delivery: IV Pitocin Complications: None 01/07/18 0357 <Electronically signed by Anahi Eason MD> Date Anahi Eason MD CC: No Primary Care Physician; Anahi Eason MD Signed CBC-COMPLETE BLOOD CNT Collected: 01/07/2018 Status: F Source: RUBY NO DIFF 1:50 AM [facility] REPOSITORY TYPE CODE TESTS RESULT OUT OF RANGE REFERENCE UNITS LAB L100.1000 4.4-11.0 K/mm3 Normal WBC 10.6 LAB L100.1200 4.2-5.4 M/mm3 Normal RBC 4.45 LAB L100.1300 12.0-15.0 g/dl Normal HGB 14.2 LAB L100.1400 37-47 % Normal HCT 41.0 LAB L100.1500 81-99 fL Normal MCV 92.1 LAB L100.1600 27.0-32.0 pg Normal MCH 31.9 LAB L100.1700 32-36 g/gl Normal MCHC 34.6 LAB L100.1810 11.6-14.6 % Normal RDW CV 13.8 LAB L100.1820 35.1-43.9 fl High RDW SD 45.9 LAB L100.1900 150-450 K/mm3 Normal PLT 302 LAB L100.2000 6.2-12.0 fl Normal MPV 10.2 Performed By: #### L100.0500 #### [facility] [address] [place], [place], [address] TYPE AND SCREEN Collected: 01/07/2018 Status: F Source: [place] 1:50 AM [facility] REPOSITORY Order Comment: Reason for Type AND Screen/Red Cells: TYPE CODE TESTS RESULT OUT OF RANGE REFERENCE UNITS LAB B10.0800 AB Normal BLOOD TYPE GEL POSITIVE LAB B100.4000 Normal Antibody NEGATIVE Screen Performed By: #### B101.7450 #### [facility] [address] [place], [place], [address] (ROM) RUPTURE OF Collected: 01/06/2018 Status: F Source: [place] 2:30 PM [facility] REPOSITORY TYPE CODE TESTS RESULT OUT OF RANGE REFERENCE UNITS LAB L205.1310 Negative Normal ROM Negative Result Comment: Amniotic fluid not present indicates No Rupture of Membranes at time of specimen collection. Performed By: #### L205.1000 #### [facility] [address] [place], [address] (ROM) RUPTURE OF Collected: 01/02/2018 Status: F Source: [place] 3:15 PM [facility] REPOSITORY Order Comment: PLEASE CALL WITH RESULTS. [phone] OR PAGE DOCTOR POND WORKER FOR OFFICE. TYPE CODE TESTS RESULT OUT OF RANGE REFERENCE UNITS LAB L205.1310 Negative Normal ROM Negative Result Comment: Amniotic fluid not present indicates No Rupture of Membranes at time of specimen collection. RESULTS CALLED TO FRANKO OLVIEIRA 01/02/18 1554 Emmanuel Gann. REPORT READ BACK BY FRANKO. Performed By: #### L205.1000 #### [facility] [address] [place], [address] URINALYSIS, COMPLETE Collected: 12/24/2017 Status: F Source: [place] 10:30 PM [facility] REPOSITORY Order Comment: How was Urine Obtained? CLEAN CATCH TYPE CODE TESTS RESULT OUT OF RANGE REFERENCE UNITS LAB L400.3000 Yellow COLOR Normal Yellow LAB L400.3050 Clear Normal CLARITY Sl. Cloudy LAB L400.3200 Normal mg/dl Normal GLUCOSE, UR Normal LAB L400.3300 Negative mg/dL Normal BILIRUBIN URINE Negative LAB L400.3400 Negative mg/dl High 5 KETONE UR LAB L400.3465 1.002-1.030 Normal SP.GR. DIPSTX 1.025 LAB L400.3550 5.0 - 8.0 pH UR Normal 6.0 LAB L400.3600 Negative mg/dl High PROT 30 DIPSTX LAB L400.3700 Normal mg/dl High 1 UROBILI LAB L400.3750 Negative Normal NITRITE UR Negative LAB L400.3780 Negative /ul High 25 OCCULT BLOOD-UR LAB L400.3800 Negative /ul High LEUK ESTERASE 500 LAB L400.4050 0-5 /hpf WBC Normal 10-25 SEEN LAB L400.4100 0-5 /hpf 0 Normal RBC-UA SEEN LAB L400.4150 5-10 /hpf SQUAM Normal EPI 10-25 SEEN LAB L400.4300 None Seen /hpf 0 Normal BACTERIA SEEN LAB L400.4350 <or=2+ /hpf 0 Normal MUCUS, URINE SEEN LAB L400.4700 <or=2+ /hpf CA OX 2+ Normal CRYSTAL Performed By: #### L400.0001 #### [facility] [address] [place], [address] HISTORY AND PHYSICAL Observed: 12/21/2017 Status: F Source: [place] EXAM 10:02 PM [facility] REPOSITORY [facility] Medical Records Department [address] [place] [address] History and Physical 12/21/179 MR#: [id number] Acct: [id number] Name: PEPPER PANG Rep #: [id number] : 1995 22 From: Masoud Lynn MD PCP: Care Physician, No Primary Status: REG CLI Y Location: [place] [address] History and Physical Date of Admission: 12/21/17 [facility] History of this : 22 yo female Ab4 with EDC 01/28/2018 by Ultrasound, presents to Labor and Delivery with contractions ast 34 weeks and 5 days gestation. care remarkable for - HSV prophylaxis after 36 wks., H/O 33 wk delivery SPPROM, NOT immune to CHICKENPOX. 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 NOT at increased risk of clot. Pertinent Past Medical History: Group B Strep - Negative 12/21/17; none Allergies: Adhesive Tape Medications: During - albuterol sulfate HFA 90 mcg/actuation aerosol inhaler; aspirin 81 mg chewable tablet; famotidine 20 mg tablet; Flintstones Multivitamin chewable tablet; Zofran 4 mg tablet; Protonix 40 mg tablet,delayed release; sertraline 50 mg tablet; Promethazine VC-Codeine 6.25 mg-5 mg-10 mg/5 mL syrup; valacyclovir 500 mg tablet Heart: Reactive Physical Exam: Cervix 3/50/-2 Impression /Plan: 34+ week IUPwith transient contractions. UA with positive blood and bacteria. Plan hydration, single dose IV Ancef, Urine C and S and monitor. GBS done. Had dose of celestone last week. 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 FATHER OF BABY KYE PHONE prev page. EMERGENCY CONTACT LUDY GRISSOM PHONE [phone] MENSTRUAL HISTORY LMP KNOWN: DEFINITE MENSES REGULARITY REGULAR FREQUENCY: monthly DAYS MENARCHE 9 (AGE ONSET) DATE: 04/23/2017 PRIOR MENSES ON BCP AT CONCEPTION NO HCG + AMOUNT/DURATION: PAST PREGNANCIES (LAST SIX) DATE MONTH/ YEAR GA WEEKS LENGHTH OF LABOR WEIGHT SEX M/F TYPE DELIBERY ANES. PLACE OF DLEIVERY LABOR YES/NO COMMENTS/ COMPLICATIONS 03/12 8 0 0 lbs. 0 oz. Vag None [place] No SAB 03/14 8 0 0 lbs. 0 oz. Sab None [place] No 12/15 33 4 4 lbs. 12 oz. F Vag Epidural NC yes NICU 10 D. 03/18 8 0 0 lbs. 0 oz. Vag None HOME No SAB 04/19 8 0 0 lbs. 0 oz. Vag None HOME No SAB GENETIC SCREENING/TERATOLOGY COUNSELING INCLUDES PATIENT, BABY'S FATHER, OR ANYONE IN EITHER FAMILY WITH: YES NO YES NO 1. PATIENT'S AGE >35 YEARS OF ESTIMATED DATE OF DELIVERY No 12. GERMÁN'S CHOREA No 2. THALASSENMIA ([place], VATICAN CITIZEN, MEDITERRANEAN, OR BACKGROUND): MCV <80 No 13. MENTAL RETARDATION/AUTISM No 3. NEURAL TUBE DEFECT (MENINGOMYELOCELE, SPINA BIFICA, OR ANENCEPHALY) No IF YES, WAS PERSON TESTED FOR FRAGILE X? No 4. CONGENITAL HEART DEFECT No 14. OTHER INHERITED GENETIC OR CHROMOSOMAL DISORDER Yes 5. DOWN SYNDROME No 15. MATERNAL METABOLIC DISORDER (EG, TYPE 1 DIABETES, PKU) No 6. ARTIE-SACHS (EG, AMISH, CAJUN, ITALIAN GERMAN) No 16. PATIENT OR BABY'S FATHER HAD A CHILD WITH DEFECTS NOT LISTED ABOVE No 7. YVAN DISEASE 17. RECURRENT LOSS, OR A ASTILLBIRTH Yes x4 8. SICKLE CELL DISEASE OR TRAIT () No 18. MEDICATIONS (INCLUIDNG SUPPLEMENTS, VITAMINS, HERBS OR OTC DRUGS) /ILLICIT/RECREATIONAL DRUGS /ALCOHOL SINCE LAST MENSTRUAL PERIOD Yes 9. HEMOPHILIA OR OTHER BLOOD DISORDERS No IF YES, AGENT(S) AND STRENGTH/DOSAGE 10. MUSCULAR DSTROPHY No 11. CYSTIC FIBROSIS No-declines screening 19. ANY OTHER Yes COMMENTS/ COUNSELING baby aspirin, famotidine, albuterol inhaler daughter w autism INFECTION HISTORY YES NO YES NO 1. LIVE WITH SOMEONE WITH TB OR EXPOSED TO TB No 4. HISTORY OF STD, GONORRHEA, CHLAMYDIA, HPV, SYPHILIS Yes 2. PATIENT OR PARTNER HAS HISTORY OF GENITAL HERPES Yes 5. OTHER (See Comments) 3. RASH OR VIRAL ILLNESS SINCE LAS MENTRUAL PERIOD No COMMENTS Her mother has AIDS. PREPREGNANCY WEIGHT 218 DRUG ALLERGY LATEX ALLERGY Septra Adhesive Tape NONE IS BLOOD TRANSFUSION ACCEPTABLE JOY AN EMERGENCY? YES NO ANESTHESIA CONSULT PLANNED YES NO PROBLEMS/PLANS 1 HX- asthma, bronchitis, UTIs. 2 ALLERGIES- Septra, tape. 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 4 Cell free DNA WNL. 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 testing NEG 6 H/O 33 wk delivery SPPROM On progesterone injections Cervical length 3.96 cm at 27 wks EGA 7 H/O depression, anxiety, PTSD On Sertraline 8 HSV prophylaxis after 36 wks. 9 Neg Factor V Leiden. NOT at increased risk of clot. MTHFR. mutations 10 NOT immune to CHICKENPOX. Varicella IgG NEG MEDICATION LIST START DATE STOP DATE 1 albuterol sulfate HFA 90 mcg/actuation aerosol inhaler 09/02/2017 2 aspirin 81 mg chewable tablet 09/02/2017 3 famotidine 20 mg tablet 09/02/2017 4 Flintstones Multivitamin chewable tablet 09/02/2017 5 Zofran 4 mg tablet 09/02/2017 6 Protonix 40 mg tablet,delayed release 09/11/2017 7 sertraline 50 mg tablet 09/11/2017 8 Promethazine VC-Codeine 6.25 mg-5 mg-10 mg/5 mL syrup 10/29/2017 9 valacyclovir 500 mg tablet 12/04/2017 FARHAT CONFIRMATION INITIAL FARHAT LMP = FARHAT INITIAL EXAM = WKS = FARHAT ULTRASOUND = WKS = FARHAT INITIAL FARHAT INITIALED BY 18-20-WEEK FARHAT UPDATE QUIKENING + 22 WKS = FUNDAL HT. AT UMBIL. +20 WKS = ULTRASOUND = WKS= FINAL FARHAT 01/28/2018 INITIALED BY 09/02/17 18 19 ? + + 124/70 212 tr/- 0 1 DS see note 09/09/17 19 20 ? + + 128/64 213 -/- 0 4 DS see note 09/30/17 22 26 ? + + 126/78 210 -/- 0 4 DS see note 10/28/17 26 - - U+ + 100/72 212 tr/- 0 2 ELB GCT today, occ ctx's 11/11/17 28 29 ? + + 124/70 212 tr/- 0 3 DS No problems 12/04/17 32 32 V + + cl TH -2 116/74 208 -/- 2 DS c/o increased vomiting and leaking fluid dg 12/09/17 32 33 V + + 120/70 210 tr/- 1 DS No problems 12/18/17 34 34 V + + 108/70 205 tr/- sl 1 DS doing well, u/s prior PROBLEMS 09/02/17 Pepper presents as a transfer of care for her . She has had some care and an M consultation. She has a number of different issues. She has a history of miscarraiges and one delivery at 33 weeks. She should be on Gause injections and am unsure if this is set up but I think home visits would be warranted given social situation. Will plan on serial cervical lengths. She is a carrier of the MTHFR mutation per her history but we do not know whether she is a homo- or heterozygote or whether she carries any other inhertited coagulopathies. She does take a baby aspirin daily. She also reports being a Fragile X carrier but no records of this as well. I will attempt to get MFM records. She scores poorly on the [place] depression scale today and will need to address this issue but is not suicidal or having thoughts of harming herself. An anatomical US is ordered for next visit. labs ordered today. 09/02/17 Pepper is here with her mother, Ludy, her sister and her very active 4 yo daughter, Jennifer for her NOB nurse visit as a transfer of care from [place]. They are living in a trailer with other family members. Pepper is unemployed. Her , Edilson works at [employer] as a spike machine feeder. She is planning a vag del at [facility] w epidural, using either [facility] in [place] or Dr Sharon Tena for post disch ped care. She plans to breastfeed. Pepper is a G 6 P 1 with delivery at 33 weeks as PTL was unable to be stopped with MGSO4 w 10 NICU days in [place]. Jennifer has SPD, Sensory Processing Disorder and is probably on the autism spectrum. Pepper's FARHAT is Jan 28, 2018. She continues to have NVP w promethazine and Reglan unhelpful. States I threw up in your parking lot today. Her medical history includes: asthma, anxiety, depression, herpes, PTSD, UTIs, bronchitis every year and she has MTHER. Also she is a carrier for Fragile X Syndrome. She's been on Vibryd but didn't like feeling drugged so I quit taking it. EPDS score was 22. Pepper has smoked since age 13 as much as two PPD. Now is 10-14 cigarettes daily. Risks of smoking to placenta and fetus discussed and advised to cut down and quit. She states I am a recovered drug addict- I did anything and everything- it will be 4 years in December. Her diet sounds fairly balanced w minimal caffeine and close to one gal water qd. Pepper is allergic to Septra and adhesive tape. Her meds include an Albuterol Inhaler prn, baby aspirin daily, famotidine and a [facility]. Advised she could take two of the vitamins. Genetic Screening form completed noting her Fragile X status, daughter w dev disabilities. AFP and CF declined as she states she has had extensive genetic testing done at [facility]. Warning signs in reviewed along with reaching office after hours, OTC meds ok to take, importance of protein in diet, walking 20 min daily and she voices understanding. During the visit her mother answered many questions for her. Family history is documented including her mother who states I have AIDS. Detailed History screen completed. Routine labs done plus some added by Dr Vergara. She was given new patient office information and a copy of What to Expect and these were reviewed w her. Questions answered. Enc to call w any concerns. Visit lasted approx 80 minutes. Joanna SOTELO. 09/09/17 Anatomical US performed today. No anomalies noted. Normal growth, placentation and umbilical cord. Cervical length normal. Has been denied for Li injections--will appeal based on history. Extensive records reviewed. Plan to continue cervical lengths every 2-3 weeks. Will consider FFN testing once 24 weeks. 09/30/17 Weekly progesterone injections. Feeling FM. kbm 09/30/17 No complaints. US with growth >90th%. Cervical length normal. Will follow cervical lengths. 10/28/17 Hgb 14 g/dl. Glucola 121 EB 11/11/17 Some nauseousness and heartburn. Good movement. GCT and CBC normal last visit. 12/04/17 Continues with nausea and vomitting with heartburn despite antiemetics and protonix. FFN and ROM+ testing done today. Cervical length 3.0 cm. Good movement. Growth scan and cervical length next visit. 12/09/17 Doing well this week. No contractions. FFN+ last week. Will send to [facility] for celestone injection series. No bleeding or signs of SROM. Will obtain growth US next visit as last US >90th%tile. Continues weekly Gause injections 12/18/17 Some irregular contractions. BRITNI low on US today. Plan GBS screening next visit and f/u US to observe fluid. Growth normal. Lab Results since: 06/02/2017 ORDER DATEIN DESCRIPTION VALUE COMMENT CBC-COMPLETE BLOOD CNT NO DIFF 12/21/17 NOTE WBC 12.7 RBC 4.18 HGB 13.2 HCT 39.0 MCV 93.3 MCH 31.6 MCHC 33.8 RDW CV 13.5 RDW SD 45.3 PLT 246 MPV 10.1 GROUP B STREP DNA BY PCR 12/21/17 NOTE GBS TEST RESULT Negative URINALYSIS, COMPLETE 12/21/17 NOTE COLOR Yellow CLARITY Sl. Cloudy GLUCOSE, UR Normal BILIRUBIN URINE Negative KETONE UR 5 SP.GR. DIPSTX 1.025 PH UR 6.5 PROT DIPSTX 30 UROBILI 1 NITRITE UR Negative OCCULT BLOOD-UR 10 LEUK ESTERASE 25 WBC 0-5 SEEN RBC-UA 0 SEEN SQUAM EPI 5-10 SEEN BACTERIA RARE MUCUS, URINE RARE (ROM) RUPTURE OF MEMBRANES 12/21/17 NOTE ROM Negative NOTE ROM Negative (ROM) RUPTURE OF MEMBRANES 12/04/17 NOTE ROM Negative FIBRONECTIN 12/04/17 NOTE FFN POSITIVE GLUCOSE CHALLENGE GEST 1H 50G 10/28/17 NOTE GLU GEST 50G 1H 121 CBC-COMPLETE BLOOD CNT NO DIFF 10/28/17 NOTE WBC 12.9 RBC 4.37 HGB 14.0 HCT 41.3 MCV 94.5 MCH 32.0 MCHC 33.9 RDW CV 13.6 RDW SD 47.2 PLT 286 MPV 10.8 MTHFR DNA VARIANT 09/02/17 NOTE MTHFR DNA Result: C677T Single mutation (C677T) identified FACT V LEIDEN MUTATION 09/02/17 NOTE FACTOR V LEIDEN Result: Negative (no mutation found) DATE 12/21/2017 Page Number 8 NAME ALANA BERKOWITZ [id number] Medical Record V-ZOSTER VIRUS ACUTE IGM 09/02/17 NOTE V ZOS IGM 95019 < 0.91 V-ZOSTER IGG (IMMUNITY) 09/02/17 NOTE VZOST IGG 90549 < 135 HEPATITIS C ANTIBODIES 09/02/17 NOTE HEP C AB 0.1 HEPATITIS B SURFACE AG 09/02/17 NOTE HB SURF AG Negative RPR 09/02/17 NOTE RPR NONREACTIVE RUBELLA IGG 09/02/17 NOTE RUBELLA IGG 33.7 HIV - WCH 09/02/17 NOTE HIV - [facility] Non-Reactive CT/NG W[facility] BY PCR 09/02/17 NOTE CHLAM TRAC PCR Negative NG BY PCR Negative T AND S-NO CHARGE W/PNP 09/02/17 BLOOD TYPE GEL AB POSITIVE AB SCREEN GEL NEGATIVE THYROID STIM HORMONE (TSH) 09/02/17 NOTE TSH 1.27 URINE DRUG SCREEN (VISTA) 09/02/17 NOTE TO BE CONFIRMED VISTA UDS PH 7 AMPHETAMINES NEGATIVE BARBITIURATES NEGATIVE BENZODIAZIPINE NEGATIVE COCAINE NEGATIVE ECSTACY NEGATIVE METHADONE NEGATIVE OPIATES NEGATIVE PCP NEGATIVE THC NEGATIVE CBC W/DIFF, AUTOMATED 09/02/17 NOTE WBC 11.8 RBC 4.57 HGB 14.8 HCT 41.3 MCV 90.4 MCH 32.4 MCHC 35.8 RDW CV 13.8 RDW SD 45.5 PLT 261 MPV 10.6 NEUT% 79.9 LY% 13.2 MONO% 5.1 EO% 1.2 BASO% 0.2 IM GRAN % 0.400 ABSOLUTE NEUT 9.4 ABSOLUTE LYMPH 1.55 URINALYSIS, ROUTINE (DIPSTICK) 09/02/17 NOTE COLOR Yellow CLARITY Clear GLUCOSE, UR Normal BILIRUBIN URINE Negative KETONE UR Negative SP.GR. DIPSTX 1.015 PH UR 7.0 PROT DIPSTX 15 UROBILI Normal NITRITE UR Negative OCCULT BLOOD-UR Negative LEUK ESTERASE 100 12/21/172201 <Electronically signed by Masoud Lynn MD> Date Masoud Lynn MD [facility] Signature: Date (if applicable) CC: No Primary Care Physician; Masoud Lynn MD Signed CBC-COMPLETE BLOOD CNT Collected: 12/21/2017 Status: F Source: RUBY NO DIFF 9:00 PM [facility] REPOSITORY TYPE CODE TESTS RESULT OUT OF RANGE REFERENCE UNITS LAB L100.1000 4.4-11.0 K/mm3 High WBC 12.7 LAB L100.1200 4.2-5.4 M/mm3 Low RBC 4.18 LAB L100.1300 12.0-15.0 g/dl Normal HGB 13.2 LAB L100.1400 37-47 % Normal HCT 39.0 LAB L100.1500 81-99 fL Normal MCV 93.3 LAB L100.1600 27.0-32.0 pg Normal MCH 31.6 LAB L100.1700 32-36 g/gl Normal MCHC 33.8 LAB L100.1810 11.6-14.6 % Normal RDW CV 13.5 LAB L100.1820 35.1-43.9 fl High RDW SD 45.3 LAB L100.1900 150-450 K/mm3 Normal PLT 246 LAB L100.2000 6.2-12.0 fl Normal MPV 10.1 Performed By: #### L100.0500, M100.0650 #### [facility] [address] [place], [place], [address] TYPE AND SCREEN Collected: 12/21/2017 Status: F Source: RUBY 9:00 PM [facility] REPOSITORY Order Comment: Reason for Type AND Screen/Red Cells: TYPE CODE TESTS RESULT OUT OF RANGE REFERENCE UNITS LAB B10.0800 AB Normal BLOOD TYPE GEL POSITIVE LAB B100.4000 Normal Antibody NEGATIVE Screen Performed By: #### B101.7450 #### [facility] [address] [place], [address] GROUP B STREP DNA Collected: 12/21/2017 Status: F Source: RUBY BY PCR 8:10 PM [facility] REPOSITORY TYPE CODE TESTS RESULT OUT OF RANGE REFERENCE UNITS LAB L8200.0100 Negative Normal GBS TEST Negative RESULT Performed By: #### L8200.0000 #### [facility] [address] [place], [place], [address] URINALYSIS, COMPLETE Collected: 12/21/2017 Status: F Source: RUBY 7:45 PM [facility] REPOSITORY Order Comment: How was Urine Obtained? CLEAN CATCH TYPE CODE TESTS RESULT OUT OF RANGE REFERENCE UNITS LAB L400.3000 Yellow COLOR Normal Yellow LAB L400.3050 Clear Normal CLARITY Sl. Cloudy LAB L400.3200 Normal mg/dl Normal GLUCOSE, UR Normal LAB L400.3300 Negative mg/dL Normal BILIRUBIN URINE Negative LAB L400.3400 Negative mg/dl High 5 KETONE UR LAB L400.3465 1.002-1.030 Normal SP.GR. DIPSTX 1.025 LAB L400.3550 5.0 - 8.0 pH UR Normal 6.5 LAB L400.3600 Negative mg/dl High PROT 30 DIPSTX LAB L400.3700 Normal mg/dl High 1 UROBILI LAB L400.3750 Negative Normal NITRITE UR Negative LAB L400.3780 Negative /ul High 10 OCCULT BLOOD-UR LAB L400.3800 Negative /ul High LEUK 25 ESTERASE LAB L400.4050 0-5 /hpf WBC Normal 0-5 SEEN LAB L400.4100 0-5 /hpf 0 Normal RBC-UA SEEN LAB L400.4150 5-10 /hpf SQUAM Normal EPI 5-10 SEEN LAB L400.4300 None Seen /hpf Normal BACTERIA RARE LAB L400.4350 <or=2+ /hpf Normal MUCUS, URINE RARE Performed By: #### L400.0001, L205.1000 #### [facility] [address] [place], [address] Observed: 12/21/2017 Status: F Source: RUBY CULTURE, URINE 7:45 PM [facility] REPOSITORY Comments: AND SENSITIVITY Urine Culture ORGANISM 1: Mixed Gram Pos AND Gram Neg Org Little Silver Count 11,000-25,000 MIX CULTURE Mixed contaminants. Submit a new specimen if indicated. Performed By: #### L100.0500, M100.0650 #### [facility] [address] [place], [address] (ROM) RUPTURE OF Collected: 12/21/2017 Status: F Source: RUBY MEMBRANES 7:41 PM [facility] REPOSITORY TYPE CODE TESTS RESULT OUT OF RANGE REFERENCE UNITS LAB L205.1310 Negative Normal ROM Negative Result Comment: Amniotic fluid not present indicates No Rupture of Membranes at time of specimen collection. Performed By: #### L400.0001, L205.1000 #### [facility] [address] [place], [place] [address]. [place], [address] Observed: 12/21/2017 Status: F Source: RUBY CULTURE, GROUP B 12:00 AM [facility] STREPTOCOCCUS REPOSITORY MALACHI Culture Group B Beta Streptococcus is not isolated. Performed By: #### M100.1800 #### [facility] [place], [address] (ROM) RUPTURE OF Collected: 12/10/2017 Status: F Source: RUBY MEMBRANES 5:07 PM [facility] REPOSITORY TYPE CODE TESTS RESULT OUT OF RANGE REFERENCE UNITS LAB L205.1310 Negative Normal ROM Negative Result Comment: Amniotic fluid not present indicates No Rupture of Membranes at time of specimen collection. Performed By: #### L205.1000 #### [facility] [address] [place] [address]. [place], [address] FIBRONECTIN Collected: 12/04/2017 Status: F Source: RUBY 3:00 PM [facility] REPOSITORY Order Comment: STAT...CALL DR. VERGARA WITH RESULTS AT [phone].SPEAK TO A NURSE. TYPE CODE TESTS RESULT OUT OF REFERENCE UNITS RANGE LAB L205.0100 High fFN POSITIVE Result Comment: CRITICAL VALUE VERIFIED. CALLED TO MAGDALENE Cole RN AT DR VERGARA OFFICE 12/04/17 1601 Mary Fish. RESULTS READ BACK BY SAME . Performed By: #### L205.0000, L205.1000 #### [facility] [address] [address] [place], [place], [id number] (ROM) RUPTURE OF Collected: 12/04/2017 Status: F Source: [place] 3:00 PM [facility] REPOSITORY Order Comment: STAT...CALL DR. VERGARA WITH RESULTS AT [phone].SPEAK TO A NURSE. TYPE CODE TESTS RESULT OUT OF RANGE REFERENCE UNITS LAB L205.1310 Negative Normal ROM Negative Result Comment: Amniotic fluid not present indicates No Rupture of Membranes at time of specimen collection. Performed By: #### L205.0000, L205.1000 #### [facility] [address] [place], [place], [id number] CBC-COMPLETE BLOOD CNT Collected: 10/28/2017 Status: F Source: RUBY NO DIFF 1:00 PM [facility] REPOSITORY TYPE CODE TESTS RESULT OUT OF RANGE REFERENCE UNITS LAB L100.1000 4.4-11.0 K/mm3 High WBC 12.9 LAB L100.1200 4.2-5.4 M/mm3 Normal RBC 4.37 LAB L100.1300 12.0-15.0 g/dl Normal HGB 14.0 LAB L100.1400 37-47 % Normal HCT 41.3 LAB L100.1500 81-99 fL Normal MCV 94.5 LAB L100.1600 27.0-32.0 pg Normal MCH 32.0 LAB L100.1700 32-36 g/gl Normal MCHC 33.9 LAB L100.1810 11.6-14.6 % Normal RDW CV 13.6 LAB L100.1820 35.1-43.9 fl High RDW SD 47.2 LAB L100.1900 150-450 K/mm3 Normal PLT 286 LAB L100.2000 6.2-12.0 fl Normal MPV 10.8 Performed By: #### L100.0500 #### [facility] [address] [place], [place], [id number] GLUCOSE CHALLENGE GEST Collected: 10/28/2017 Status: F Source: RUBY 1H 50G 1:00 PM [facility] REPOSITORY TYPE CODE TESTS RESULT OUT OF RANGE REFERENCE UNITS LAB L501.0250 70-140 mg/dL Normal GLU GEST 121 50g 1H Performed By: #### L501.0250 #### [facility] [address] [place], [place], [address] URINE DRUG SCREEN Collected: 09/02/2017 Status: F Source: RUBY (VISTA) 11:58 AM [facility] REPOSITORY Order Comment: Comments: UNKNOWN STATUS TO CHICKEN POX List of Drugs Taken or Suspected? UNK TYPE CODE TESTS RESULT OUT OF RANGE REFERENCE UNITS LAB L505.0075 TO BE Normal CONFIRMED Result Comment: CONFIRMATORY TESTING FOR ALL POSITIVE URINE DRUG SCREEN RESULTS WILL ONLY BE SENT OUT UPON PHYSICIAN ORDER. VISTA Urine Drug Screen methods provide only preliminary analytical test results. A more specific alternate chemical method must be used in order to obtain a confirmed analytical result. Gas chromatography/mass spectrometery (GC/MS) is the preferred confirmatory method. Clinical consideration and professional judgement should be applied to any drug of abuse test result, particularly when preliminary positive results are used. URINE TCA TESTING MUST BE ORDERED SEPARATELY. USE TEST MNEMONIC: [facility] LAB L505.5005 VISTA UDS PH 7 Normal LAB L505.5015 <1000 ng/mL AMPHETAMINES Normal NEGATIVE LAB L505.5025 < 200 ng/mL BARBITIURATES Normal NEGATIVE LAB L505.5035 < 200 ng/mL BENZODIAZIPINE Normal NEGATIVE LAB L505.5045 < 300 ng/mL COCAINE Normal NEGATIVE LAB L505.5055 < 500 ng/mL ECSTACY Normal NEGATIVE LAB L505.5065 < 300 ng/mL METHADONE Normal NEGATIVE LAB L505.5075 < 300 ng/mL OPIATES Normal NEGATIVE LAB L505.5085 < 25 ng/mL PCP Normal NEGATIVE LAB L505.5095 < 50 ng/mL THC Normal NEGATIVE Performed By: #### L505.5000 #### [facility] [address] [place], [address] URINALYSIS, ROUTINE Collected: 09/02/2017 Status: F Source: RUBY (DIPSTICK) 11:58 AM [facility] REPOSITORY Order Comment: Comments: UNKNOWN STATUS TO CHICKEN POX How was Urine Obtained? Urine, Random TYPE CODE TESTS RESULT OUT OF RANGE REFERENCE UNITS LAB L400.3000 Yellow COLOR Normal Yellow LAB L400.3050 Clear Normal CLARITY Clear LAB L400.3200 Normal mg/dl Normal GLUCOSE, UR Normal LAB L400.3300 Negative mg/dL Normal BILIRUBIN URINE Negative LAB L400.3400 Negative mg/dl Normal KETONE UR Negative LAB L400.3465 1.002-1.030 Normal SP.GR. DIPSTX 1.015 LAB L400.3550 5.0 - 8.0 pH UR Normal 7.0 LAB L400.3600 Negative mg/dl High PROT 15 DIPSTX LAB L400.3700 Normal mg/dl Normal UROBILI Normal LAB L400.3750 Negative Normal NITRITE UR Negative LAB L400.3780 Negative /ul Normal OCCULT BLOOD-UR Negative LAB L400.3800 Negative /ul High LEUK ESTERASE 100 Performed By: #### L400.2011 #### [facility] [address] [place], [address] CBC W/DIFF, AUTOMATED Collected: 09/02/2017 Status: F Source: [place] 11:58 AM [facility] REPOSITORY TYPE CODE TESTS RESULT OUT OF RANGE REFERENCE UNITS LAB L100.1000 4.4-11.0 K/mm3 High WBC 11.8 LAB L100.1200 4.2-5.4 M/mm3 Normal RBC 4.57 LAB L100.1300 12.0-15.0 g/dl Normal HGB 14.8 LAB L100.1400 37-47 % Normal HCT 41.3 LAB L100.1500 81-99 fL Normal MCV 90.4 LAB L100.1600 27.0-32.0 pg High MCH 32.4 LAB L100.1700 32-36 g/gl Normal MCHC 35.8 LAB L100.1810 11.6-14.6 % Normal RDW CV 13.8 LAB L100.1820 35.1-43.9 fl High RDW SD 45.5 LAB L100.1900 150-450 K/mm3 Normal PLT 261 LAB L100.2000 6.2-12.0 fl Normal MPV 10.6 LAB L100.2100 47-70 % High NEUT% 79.9 LAB L100.2200 19-41 % Low LY% 13.2 LAB L100.2300 0-10 % Normal MONO% 5.1 LAB L100.2400 0-5 % Normal EO% 1.2 LAB L100.2500 0-1 % Normal BASO% 0.2 LAB L100.2550 0.0-0.9 % Normal IM GRAN % 0.400 Result Comment: IG% - Immature Granulocytes (promyelocytes, myelocytes and metamyelocytes) > 1% indicates that a LEFT SHIFT is Present. LAB L100.2620 2.0-7.7 X10 3/uL High Absolute Neut 9.4 LAB L100.2720 0.83-4.51 X10 3/ul Normal Absolute Lymph 1.55 Performed By: #### L100.0100 #### [facility] [address] [place], [address] THYROID STIM HORMONE Collected: 09/02/2017 Status: F Source: [place] (TSH) 11:58 AM [facility] REPOSITORY TYPE CODE TESTS RESULT OUT OF RANGE REFERENCE UNITS LAB L501.9520 0.358-3.74 uIU/mL Normal TSH 1.27 Performed By: #### L501.9520 #### [facility] [facility] [place], [address] T AND S-NO Collected: 09/02/2017 Status: F Source: [place] CHARGE W/PNP 11:58 AM [facility] REPOSITORY Order Comment: Reason for Type AND Screen/Red Cells: Surgery? N TYPE CODE TESTS RESULT OUT OF RANGE REFERENCE UNITS LAB B10.0800 AB Normal BLOOD POSITIVE TYPE GEL LAB B100.4050 Normal Ab SCREEN NEGATIVE GEL Performed By: #### B100.7550 #### [facility] [address] [place], [address] CT/NG WCH BY PCR Collected: 09/02/2017 Status: F Source: [place] 11:58 AM [facility] REPOSITORY TYPE CODE TESTS RESULT OUT OF RANGE REFERENCE UNITS LAB L8200.2100 Negative Normal Chlam Negative Trac PCR LAB L8200.2200 Negative Normal NG by Negative PCR Performed By: #### L8200.2000 #### [facility] [address] [place], [address] RUBELLA IGG Collected: 09/02/2017 Status: F Source: [place] 11:58 [facility] REPOSITORY Order Comment: Comments: UNKNOWN STATUS TO CHICKEN POX TYPE CODE TESTS RESULT OUT OF RANGE REFERENCE UNITS LAB L509.4000 IU/mL Normal Rubella IgG 33.7 Result Comment: Antibody results Interpretation of Immune Status < 5 IU/ml Presumed Non-immune 5 - < 10 IU/ml Equivocal > or = 10 IU/ml Presumed Immune Performed By: #### L509.4000, L3890.6005 #### [facility] [address] [place], [address] HIV - WCH Collected: 09/02/2017 Status: F Source: [place] 11:58 AM [facility] REPOSITORY Order Comment: Comments: UNKNOWN STATUS TO CHICKEN POX TYPE CODE TESTS RESULT OUT OF RANGE REFERENCE UNITS LAB L3890.6005 Nonreactive Normal HIV - WCH Non-Reactive Performed By: #### L509.4000, L3890.6005 #### [facility] [address] [place], [address] RPR Collected: 09/02/2017 Status: F Source: [place] 11:58 [facility] REPOSITORY TYPE CODE TESTS RESULT OUT OF REFERENCE UNITS RANGE LAB L700.5100 NONREACTIVE Normal RPR NONREACTIVE Performed By: #### L700.5100 #### [facility] [address] [facility] [place], [address] HEPATITIS B SURFACE Collected: 09/02/2017 Status: F Source: [facility] 11:58 AM [facility] REPOSITORY Order Comment: Comments: UNKNOWN STATUS TO CHICKEN POX TYPE CODE TESTS RESULT OUT OF RANGE REFERENCE UNITS LAB L3100.0400 Negative Normal HB Negative SURF AG Result Comment: Performed at: [facility] [employer] [id number] Population Health Coach: Salvador Mendoza PhD, Phone: [phone] Performed at: [facility] [address] [place] [id number] Population Health Coach: Rhianna Garza MD, Phone: [phone] Performed By: #### L3100.0390, L3100.0625, L3300.9950, L3400.0000, L4500.5000, L4600.0155 #### [facility] (refer to report for specific site) refer to report for address and phone number HEPATITIS C ANTIBODIES Collected: 09/02/2017 Status: F Source: RUBY 11:58 AM [facility] REPOSITORY Order Comment: Comments: UNKNOWN STATUS TO CHICKEN POX TYPE CODE TESTS RESULT OUT OF RANGE REFERENCE UNITS LAB L3100.0650 0.0-0.9 s/co ratio Normal HEP C AB 0.1 Result Comment: Negative: < 0.8 Indeterminate: 0.8 - 0.9 Positive: > 0.9 The CDC recommends that a positive HCV antibody result be followed up with a HCV Nucleic Acid Amplification test (921428). Performed By: #### L3100.0390, L3100.0625, L3300.9950, L3400.0000, L4500.5000, L4600.0155 #### [facility] (refer to report for specific site) refer to report for address and phone number V-ZOSTER VIRUS ACUTE Collected: 09/02/2017 Status: F Source: RUBY IGM 11:58 AM [facility] REPOSITORY Order Comment: Comments: UNKNOWN STATUS TO CHICKEN POX TYPE CODE TESTS RESULT OUT OF RANGE REFERENCE UNITS LAB L3300.9950 0.00-0.90 index Normal V ZOS IgM < 0.91 [address] Result Comment: Negative <0.91 Borderline 0.91 - 1.09 Positive >1.09 Performed By: #### L3100.0390, L3100.0625, L3300.9950, L3400.0000, L4500.5000, L4600.0155 #### [facility] (refer to report for specific site) refer to report for address and phone number V-ZOSTER IGG Collected: 09/02/2017 Status: F Source: RUBY (IMMUNITY) 11:58 AM [facility] REPOSITORY Order Comment: Comments: UNKNOWN STATUS TO CHICKEN POX TYPE CODE TESTS RESULT OUT OF RANGE REFERENCE UNITS LAB L3400.0000 Immune >165 index Low VZOST IgG < 135 [address] Result Comment: Negative <135 Equivocal 135 - 165 Positive >165 A positive result generally indicates exposure to the pathogen or administration of specific immunoglobulins, but it is not indication of active infection or stage of disease. Performed By: #### L3100.0390, L3100.0625, L3300.9950, L3400.0000, L4500.5000, L4600.0155 #### [facility] (refer to report for specific site) refer to report for address and phone number FACT V LEIDEN Collected: 09/02/2017 Status: F Source: RUBY MUTATION 11:58 AM [facility] REPOSITORY Order Comment: Comments: UNKNOWN STATUS TO CHICKEN POX TYPE CODE TESTS RESULT OUT OF RANGE REFERENCE UNITS LAB L4500.5100 . Normal FACTOR V Comment LEIDEN Result Comment: Result: Negative (no mutation found) Factor V Leiden is a specific mutation (R506Q) in the factor V gene that is associated with an increased risk of venous thrombosis. Factor V Leiden is more resistant to inactivation by activated protein C. As a result, factor V persists in the circulation leading to a mild hyper- coagulable state. The Leiden mutation accounts for 90% - 95% of APC resistance. Factor V Leiden has been reported in patients with deep vein thrombosis, pulmonary embolus, central retinal vein occlusion, cerebral sinus thrombosis and hepatic vein thrombosis. Other risk factors to be considered in the workup for venous thrombosis include the [id number] mutation in the factor II (prothrombin) gene, protein S and C deficiency, and antithrombin deficiencies. Anticardiolipin antibody and lupus anticoagulant analysis may be appropriate for certain patients, as well as homocysteine levels. Contact your local [facility] for information on how to order additional testing if desired. Genetic counselors are available for health care providers to discuss results at [phone] ([phone]). Methodology: DNA analysis of the Factor V gene was performed by allele- specific PCR. The diagnostic sensitivity and specificity is >99% for both. Molecular-based testing is highly accurate, but as in any laboratory test, diagnostic errors may occur. All test results must be combined with clinical information for the most accurate interpretation. This test was developed and its performance characteristics determined by [facility]. It has not been cleared or approved by the Food and Drug Administration. References: Sonal Montero (1996). Clin Lab Med 16:169-186. Alyson Hannah, PhD, [facility] Genia Khan, PhD, [facility] Rupert BurciagaSKalyani, PhD, [facility] Sophie Wynn, PhD, [facility] Ike Ramirez, PhD, [facility] Constantin Sorenson PhD, [facility] Performed By: #### L3100.0390, L3100.0625, L3300.9950, L3400.0000, L4500.5000, L4600.0155 #### [facility] (refer to report for specific site) refer to report for address and phone number MTHFR DNA VARIANT Collected: 09/02/2017 Status: F Source: RU[place] 11:58 AM [facility] REPOSITORY Order Comment: Comments: UNKNOWN STATUS TO CHICKEN POX TYPE CODE TESTS RESULT OUT OF RANGE REFERENCE UNITS LAB L4600.0205 . Normal MTHFR DNA Comment Result Comment: Result: C677T Single mutation (C677T) identified Interpretation: This individual is heterozygous for the MTHFR C677T variant (one copy). The MTHFR I7509O variant was not identified. This combination of results is not associated with an increased risk of hyperhomocysteinemia, venous thrombosis, coronary artery disease, or recurrent loss. However, hyperhomocysteinemia may also occur due to mutations in enzymes other than MTHFR that are involved in homocysteine metabolism, or arise due to acquired factors. In evaluation of vascular and obstetric risk, consider measuring fasting homocysteine. Other risk factors may be detected through systematic clinical laboratory analysis. Methylenetetrahydrofolate reductase (MTHFR) is a cade enzyme in the folate pathway and is responsible for the metabolism of homocysteine. There are two common variants in the MTHFR gene, c.655c>T (p.Mqh609Cpcx), referred to as C677T, and c.1286A>C (p.Sbz991Cpt), referred to as E4280P. Individuals homozygous for C677T (two copies of the variant), have decreased activity of the MTHFR enzyme and a predisposition to hyperhomocysteinemia, particularly when deficient in folate. Hyperhomocysteinemia is a risk factor for venous thrombosis and coronary artery disease and is associated with an increased risk of open neural tube defects. The C677T variant does not independently increase risk of these conditions in the absence of hyperhomocysteinemia. The T7502K variant is not associated with elevated homocysteine levels unless a C677T variant is also present; however, the clinical significance of heterozygosity for both C677T and R9527A is controversial. Population data suggest that these two variants are not present on the same chromosome, but rare exceptions have been reported of triple variant MTHFR genotypes (ie. homozygous for one variant and heterozygous for the other). Homozygosity for C677T has an estimated frequency of 10% to 15% in Caucasians and 25% in Hispanics. Additional information: Dietary folic acid, B6 and B12 supplementation has been suggested to lower homocysteine levels in some people. Folic acid supplementation has been shown to reduce the occurrence of neural tube defects. Genetic counselors are available for health care providers to discuss results at [phone]. Methodology: DNA analysis of the MTHFR gene was performed by PCR amplification followed by restriction analysis. The diagnostic sensitivity is >99% for both. Molecular-based testing is highly accurate, but as in any laboratory test, rare diagnostic errors may occur. All test results must be combined with clinical information for the most accurate interpretation. This test was developed and its performance characteristics determined by [facility]. It has not been cleared or approved by the Food and Drug Administration. References: Radha LD, Randy Q. Am J Epidemiol 2000; 151(9):862-877. Kristy MM, Sam AYOUB. Arch Pathol Lab Med 2007; 131(6):872-884. Frosst P et al. Michelle Fela 1995; 10(1):111-113. Syedkey SE et al. Fela Med 2013; 15(2):153-156. Debbie C et al. Obstet Gynecol 2011; 118(3):730-740. Wilbur B et al. Eur J Epidemiol 2013; 28(8):621-647. Alyson Hannah, PhD, [facility] Genia Khan, PhD, [facility] Brittny Gill MKalyaniS., PhD, FAC Sophie Wynn, PhD, FAC Ike Ramirez, PhD, [facility] Constantin Sorenson, PhD, [facility] Performed By: #### L3100.0390, L3100.0625, L3300.9950, L3400.0000, L4500.5000, L4600.0155 #### [facility] (refer to report for specific site) refer to report for address and phone number CARDIOLIPIN AB Collected: 07/17/2017 Status: F Source: [place] 4:05 PM [facility] REPOSITORY Order Comment: What is the sendout facility name, if known?->joe Billing type:->Direct Test Name->panorama TYPE CODE TESTS RESULT OUT OF REFERENCE UNITS RANGE LAB CARDG(LOIN GPL C) IgG Cardiolipin Ab <9.4 Result Comment: REFERENCE VALUE <15.0 (Negative) Test Performed by: [facility] [address] LAB CARDM(LOINC) MPL IgM Cardiolipin Ab <9.4 Result Comment: REFERENCE VALUE <15.0 (Negative) Performed By: #### CARDI #### [address] [id number] BETA 2 GLYCOPROTEIN ABS Collected: 07/17/2017 Status: F Source: [place] 4:05 PM [facility] REPOSITORY Order Comment: What is the sendout facility name, if known?->Vpon Billing type:->Direct Test Name->panorama TYPE CODE TESTS RESULT OUT OF REFERENCE UNITS RANGE LAB B2GBG(LOIN U/mL C) Beta 2 Glycoprotein IgG <9.4 Result Comment: REFERENCE VALUE <15.0 (Negative) LAB B2GPM(LOINC) U/mL Beta 2 Glycoprotein IgM <9.4 Result Comment: REFERENCE VALUE <15.0 (Negative) Test Performed by: [facility] [place] [id number] Performed By: #### B2GP #### [address] [id number] DRVVT SCREEN RATIO Collected: 07/17/2017 Status: F Source: [place] WITH REFLEX 4:05 PM [facility] REPOSITORY Order Comment: What is the sendout facility name, if known?->joe Billing type:->Direct Test Name->panorama TYPE CODE TESTS RESULT OUT OF REFERENCE UNITS RANGE LAB DRSCR(LOINC <1.2 ratio ) DRVVT Screen 1.1 Ratio Result Comment: Test Performed by: [facility] [address] [id number] LAB POORNIMA(LOINC) NA DRVVT Interpretation SEE BELOW Result Comment: Impression: 1) No evidence of lupus anticoagulant based on the dilute Son's viper venom time testing only; see comments and suggest clinical correlation. 2) If additional evaluation for presence of antiphospholipid antibodies is clinically indicated, consider obtaining serologic testing for IgG and IgM anti-cardiolipin and/or anti-beta-2 glycoprotein 1 antibodies. Comments: The normal dilute Son's viper venom time (DRVVT) screen ratio provides no evidence of lupus anticoagulant by this single methodology. A normal DRVVT screen ratio does not exclude the possibility of lupus anticoagulant. Currently, the International Society on Thrombosis and Haemostasis (ISTH) and the Clinical and Laboratory Standards [place] (CLSI) recommend testing for lupus anticoagulant with at least two phospholipid dependent clotting time assays based on different coagulation pathways and principles (e.g. lupus- sensitive APTT, DRVVT, etc.). If clinically indicated, consider future follow up testing Coagulation Consultation [id number] (Lupus Anticoagulant Profile). Test Performed by: [facility] - [address] [address] Performed By: #### DRVTI #### [address] [address] PROGRESS NOTE Observed: 07/17/2017 Status: COMPLETED Source: [place] 2:45 PM [facility] REPOSITORY Reason for Referral Pepper, her partner, Kye Augustin ( 04/21/1983) and her mother, Ludy, were seen by myself and ANNABELLE Lyons on 07/17/2017 at [facility] to discuss the potential familial implications of several aspects of her family history and her history of recurrent loss. History At the time of the visit Pepper was 22 y.o. and approximately 12 weeks 1 day by prior established dating. This is her 6th , her 3rd with her current partner. Pepper's first two pregnancies from a prior relationship resulted in unexplained first trimester losses. She also had a daughter, Jennifer Pang, from a previous relationship born at 33 weeks gestation on 12/03/2014. Jennifer is reported to have a sensory processing disorder and possible seizures. Due to the possibility of a unifying diagnosis for her medical and developmental concerns, Jennifer has several evaluations scheduled at [facility], including a medical genetics evaluation. Together, Pepper and Kye have also had two unexplained first trimester losses. The family also reported a complex medical and developmental history for Pepper's maternal half-sister, Naomi Grissom, 10/23/1999. Naomi was described as having severe intellectual disability, an autism spectrum disorder, epilepsy, and a heart murmur. 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 Follow up parental studies were not performed to determine if this finding occurred de colton, or was also present in an unaffected parent. A report documenting the genes present in this region was not available at the time of the visit. Recently, Naomi was evaluated by medical genetics at [facility] and had whole exome sequence analysis performed. 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 Pathogenic changes in the CHD2 gene are known to cause childhood-onset epilepticencephalopathy, and this finding was considered to be a likely diagnosis. Naomi's mother tested negative for the finding. 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 Ultrasound Findings The ultrasound was consistent with prior established dating. Ultrasound was within normal limits for gestational age, however, and NT measurement could not be obtained due to position. Please refer to the ultrasound report for full details. Genetic Counseling Summary The family was well aware that in order to provide accurate genetic counseling, specific information regarding an individual's diagnosis is necessary. At this time, Pepper's daughter, Jennifer, is without a unifying diagnosis, and it is not possible to determine accurate recurrence risks, if any. Additional information may be forthcoming following Jennifer's medical genetics evaluation. However, the work up may not be completed during the current . We would be happy to review relevant information as it becomes available. We also reviewed the potential implications associated with Naomi's prior genetic test results. It was explained that the CHD2 gene change is a dominant gene change and having a single copy results in clinical symptoms. This change was present in Naomi, and not Ludy, and would, therefore, have negligible implications for other family members. Because Ludy was found to be a carrier for the autosomal recessive condition, Sathish disease, through this process, each of her children would be expected to have a 1 in 2 (50%) chance of also being carriers. Carrier screening for this condition is including in the universal carrier screening panel offered through [employer]), and Pepper and Kye decided to pursue this carrier screening option. The significance of Naomi's chromosomal microarray copy number variant (15q26.3 duplication) remains unclear, since it has rarely been reported. In some cases, copy number variants may have different phenotypic effects, even among members of the same family, and therefore, without additional testing, we cannot rule out the possibility Jennifer might also carry the same copy number variant with possible medical or developmental effects. If this were the case, however, other family members would carry the finding without effects. While testing would be possible, predictions regarding the phenotype would not be possible. While testing other family members would be considered medically indicated, the family declined to pursue this further. An NT measurement could not be obtained due to position. Therefore, we discussed additional available screening and diagnostic testing options for aneuploidy. The general population risk of numerical chromosomal abnormalities was reviewed. We reviewed the diagnostic testing options for aneuploidy, including amniocentesis and chorionic villus sampling. The risks, benefits, and limitations of the procedures was discussed. We also discussed first trimester general population screening options for aneuploidy, as well as maternal serum cell-free DNA screening with the option of screening for additional microdeletions. Currently, maternal serum cell-free DNA screening is typically offered to individuals considered at an increased risk for aneuploidy, although several recent studies have reported comparable high detection rates and low false positive rates in the general population. Therefore, this option was also reviewed. Since maternal serum cell-free DNA screening is considered a higher efficiency screening test than traditional first trimester screening, traditional first trimester screening is typically not indicated if maternal serum cell-free DNA screening is pursued. However, maternal serum alpha-fetoprotein screening for neural tube defects after 16 weeks is also an option. We also reviewed Pepper's history of recurrent loss. It was explained that at least 50-60% of all first trimester losses are due to chromosomal abnormalities. In most cases, this occurs spontaneously due to nondisjunction. We also discussed that studies have shown that in approximately 2-5% of all couples that have experienced two or more unexplained miscarriages, one individual may carry a balanced chromosome rearrangement. Again, an unbalanced amount of genetic information can lead to serious problems in development that may result in a miscarriage. An individual with a chromosome rearrangement, known as a translocation, has portions of chromosomes that have been exchanged. An individual with a balanced chromosome translocation has the correct amount of genetic information, but the information is organized differently. These individuals are not at increased risk for medical or developmental problems. However, they may have an increased risk to have miscarriages. For an individual with a translocation there may also be a chance to have a child with developmental problems due to a chromosomal imbalance. It is, therefore, considered standard of care to offer couples that have had multiple unexplained losses a blood test to examine their chromosomes to rule out a translocation in either parent. We also discussed that there are many other factors which may contribute to an increased chance of loss include maternal age, uterine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 Result Comment: <50 ng/ml CUTOFF LAB PCPMT NEGATIVE NG/ML PHENCYCLIDINE NEGATIVE Result Comment: <25 ng/ml [facility] LAB COCMT NEGATIVE NG/ML COCAINE NEGATIVE Result Comment: <150 ng/ml [facility] LAB MAMPMT NEGATIVE NG/ML METHAMPHETAMINE NEGATIVE Result Comment: <500 ng/ml [facility] LAB OPIMT NEGATIVE NG/ML OPIATES NEGATIVE Result Comment: <100 ng/ml C[facility] LAB AMPMT NEGATIVE NG/ML AMPHETAMINE NEGATIVE Result Comment: <500 ng/ml [facility] LAB BZOMT NEGATIVE NG/ML BENZODIAZEPINES NEGATIVE Result Comment: <150 ng/ml [facility] LAB TCAMT NEGATIVE NG/ML TRICYCLIC ANTIDEPRESSANTS NEGATIVE Result Comment: <300 ng/ml [facility] LAB MTDMT NEGATIVE NG/ML METHADONE NEGATIVE Result Comment: <200 ng/ml C[facility]OFF LAB BARMT NEGATIVE NG/ML BARBITURATES NEGATIVE Result Comment: <200 ng/ml C[facility]OFF LAB OXYMT NEGATIVE NG/ML OXYCODONE NEGATIVE Result Comment: <100 ng/ml C[facility]OFF LAB PPXMT NEGATIVE NG/ML PROPOXYPHENE NEGATIVE Result Comment: <300 ng/ml C[facility]OFF LAB BUPMT NEGATIVE NG/ML BUPRENORPHINE NEGATIVE Result Comment: <10 ng/ml CUTOFF Performed By: #### RTOX #### Testing performed at [place] [id number] Observed: 05/21/2017 Status: F Source: [facility] URINE CULTURE 9:34 AM [place] REPOS[place]ORY SPECIMEN DESCRIPTION URINE CLEAN CATCH UA DIPSTICK NITRITE NEGATIVE * Result Note: LEUKOCYTE NEGATIVE * CULTURE NO PATHOGENS ISOLATED * Result Note: Testing performed at [place] [address] * REPORT STATUS 05/23/2017 * Result Note: FINAL * Performed By: #### AURNC #### Testing performed at [place] [id number] [place] [address] TRICH VAG BY LEROY Collected: 05/21/2017 Status: F Source: [employer] 9:34 AM [place] REPOS[place]ORY TYPE CODE TESTS RESULT OUT OF REFERENCE UNITS RANGE LAB XTV Negative TRICH VAG Negative BY LEROY Result Comment: PERFORMED AT [facility] CHLAM/GC AMPLIF Collected: 05/21/2017 Status: F Source: [employer] 9:34 AM [place] REPOSITORY TYPE CODE TESTS RESULT OUT OF REFERENCE UNITS RANGE LAB XCHLU1 Negative CHLAMYDIA NUC. Negative AMP LAB XCHLU2 Negative GONOCOCCUS NUC. Negative AMP Result Comment: PERFORMED AT [facility] ALLERGIES ALLERGIES DATE TYPE / NAME / CODE REACTION SEVERITY SOURCE CODE 03/18/2018 Drug sulfamethoxazole/ Hives Unknown [place] Allergy/41 [id number](RXNORM Community [id number]([facility] CT) Repository 03/18/2018 Drug trimethoprim/F006 Hives Unknown [place] Allergy/41 658531(RXNORM) Community 7305817([facility] CT) Repository 03/18/2018 Drug bee venom protein Anaphylaxis Unknown [place] Allergy/41 (honey Community 8587907( bee)/[id number]([facility] CT) XNORM) Repository 11/09/2010 DRUG/69486 BACTRIM [facility] 1003([facility] D [facility]) Repository Drug SULFA ANTIBIOTICS [facility] Class/4195 Hospital [address]([facility] Repository ED CT) ENCOUNTERS ENCOUNTERS ADMIT/DISCHARGE ACCOUNT NUMBER ADMITTING ENCOUNTER LOCATION SOURCE CLASS 03/25/2018/03/25/19 [id number] Ambulatory [place] 19 [facility] ding:SDCRoo Repository : AC08 01/07/2018/01/09/20 [id number] Yumi, Inpatient [place] 18 [facility] ding:WPRoom: Repository BK276Pxs: 1 01/06/2018/01/07/20 [id number] Ambulatory [place] [address] [place] [address] ding:WPOUTRo Repository om: WP011 01/02/2018 [id number] [facility] ding:LABSPEC Repository 12/24/2017/12/25/19 [id number] Ambulatory Ruby Ruby 18 [facility] ding:WPOUTRo Repository om: WP013 12/21/2017/12/23/19 [id number] Ambulatory [place] 18 [facility] ding:WPOUTRo Repository om: WP012 12/10/2017/12/11/19 [id number] Ambulatory [place] 18 [facility] ding:WPOUTRo Repository om: WP015 12/09/2017/12/10/19 [id number] Ambulatory Ruby Ruby 18 [facility] ding:WPOUTRo Repository om: WP013 12/04/2017 [id number] [facility] ding:LABSPEC Repository 10/28/2017 [id number] Ambulatory [facility] ding:LABSPEC Repository 09/02/2017 [id number] Ambulatory [facility] ding:WOBLAB Repository 07/17/2017/07/18/19 [id number] Ambulatory Building:[address] Repository 07/17/2017 [id number] Ambulatory Building:[facility] Repository 07/17/2017 [id number] Ambulatory Building:[facility] Repository 07/17/2017/07/18/19 [id number] Ambulatory Building:[address] Repository 07/02/2017/07/03/19 [id number] [address] [place] [address] DRoom: System ([place]) G043Sul: Repository E014 06/11/2017 [id number] [address] [place] [address] [place]) Repository 06/08/2017/06/10/19 [id number] [facility] [place] [address] DRoom: [place] F765Ioy: Repository E012 05/21/2017 [id number] Ambulatory [facility]in[facility] [place] Repository 05/21/2017 [id number] [address] [place] [address] System [place]) Repository PAYERS PAYERS ENCOUNTER GUARANTOR PAYER SUBSCRIBER SOURCE 03/25/2018 PEPPER F Primary Insurance:[facility] PEPPER F Ruby [id number] [facility] TANNERDOB: [facility] [address], Number: [id number] Navajo Medical Center [address]Aee: [id number] Repository Date:2373-98-12DJ BOX () [address] [place] [address] 119[address]ZH: 03/25/2018 Secondary NOT GIVENUNK [place] Insurance:SELF PAY [facility] Number: Effective Repository Date:2018-02-27 01/07/2018 PEPPER F Primary Insurance:[facility] PEPPER F [place] [id number] [facility] TANNERDOB: [address], Number: [id number] Navajo Medical Center [address]Akd: [id number] Repository Date:1884-33-41PF BOX () [address] [place] [address] 997[address]RR: 01/07/2018 Secondary NOT GIVENUNK [place] Insurance:SELF PAY [facility] Number: Effective Repository Date:2018-01-07 01/06/2018 PEPPER F Primary Insurance:[facility] PEPPER F [place] [id number] [facility] PLANPolicy TANNERDOB: [address], Number: [id number] Navajo Medical Center [address]Sms: [id number] Repository Date:2380-00-45EK BOX () [address] [place] [address]DG: 01/06/2018 Secondary NOT GIVENUNK Ruby Insurance:SELF PAY [facility] Number: Effective Repository Date:2018-01-06 01/02/2018 PEPPER F Primary Insurance:[facility] PEPPER F [place] [id number] [facility] TANNERD[facility]: [address], Number: [id number] Navajo Medical Center [address]Cph: [id number] Repository Date:9555-42-71UZ BOX () [address] [place] [address] 295[address]MC: 01/02/2018 Secondary NOT GIVENUNK [place] Insurance:SELF PAY [facility] Number: Effective Repository Date:2018-01-02 12/24/2017 PEPPER F Primary Insurance:[facility] PEPPER F [place] [id number] [facility] TANNERDOB: [place], [place] Number: [id number] Hospital [address]Qec: [phone] [id number] Repository [phone] () Date:2988-14-76JG [address] [place] [address] 250[address]UA: 12/24/2017 Secondary NOT GIVENUNK Ruby Insurance:SELF PAY [facility] Number: Effective Repository Date:2017-12-24 12/21/2017 PEPPER F Primary Insurance:[facility] PEPPER F Ruby [id number] [facility] TANNERDOB: [place], [place] Number: [id number] Hospital [address]Nnk: [phone] [id number] Repository [phone] () Date:1437-33-77BC [address] [address]TY: 12/21/2017 Secondary NOT GIVENUNK [place] Insurance:SELF PAY [facility] Number: Effective Repository Date:2017-12-21 12/10/2017 PEPPER F Primary Insurance:[facility] PEPPER F [place] [id number] [facility] TANNERDOB: [place], [place] Number: [id number] Hospital [address]Sof: [phone] [id number] Repository [phone] () Date:5382-91-48GJ [address] [address]IS: 12/10/2017 Secondary NOT GIVENUNK [place] Insurance:SELF PAY [facility] Number: Effective Repository Date:2017-12-10 12/09/2017 PEPPER F Primary Insurance:[facility] PEPPER F Ruby [id number] [facility] TANNERDOB: [place], [place] Number: [id number] Hospital [address]Oed: [phone] [id number] Repository [phone] () Date:1111-77-16JI [address] [address]YS: 12/09/2017 Secondary NOT GIVENUNK [place] Insurance:SELF PAY [facility] Number: Effective Repository Date:2017-12-09 12/04/2017 Alexia [id number] Primary Insurance:[facility] PEPPER TANNERDOB: [place] [facility] [id number] [facility] [address]Dnt: Number: Hospital [id number] Repository (HP) Date:9851-75-95SD [address] [address]MS: 12/04/2017 Secondary NOT GIVENUNK [place] Insurance:SELF PAY [facility] Number: Effective Repository Date:2017-12-04 10/28/2017 Alexia [id number] Primary Insurance:[facility] PEPPER [facility]ANNERDOB[facility] [id number] [facility] [place] [address]Bxl: Number: Hospital [id number] Repository (HP) Date:3150-88-60JI [address] [address]FO: 10/28/2017 Secondary NOT GIVENUNK [place] Insurance:SELF PAY [facility] Number: Effective Repository Date:2017-10-28 09/02/2017 Natalie [place] Primary Insurance:[facility] PEPPER TANNERDOB: [facility] [id number] [facility] [place] [address]Hvd: Number: [facility] [id number] Repository (HP) Date:8488-39-56IP [address] [address]ML: 09/02/2017 Secondary NOT GIVENUNK [place] Insurance:SELF PAY [facility] Number: Effective Repository Date:2017-09-02 07/17/2017 [facility] [place] Insurance[place] PEPPER [facility]TE [facility] TANNERDOB: [facility] TANNERDOB: [facility] [id number] Repository RAYSAL Number: [place], [place] [id number] [place], [place] [address]Nbb: ([phone]) Date: [phone] (HP) 07/17/2017 [facility] [place] Insurance:[place] PEPPER [facility] T[facility]NERD[facility]: [facility] TANNERDOB: [facility] [id number] Repository [facility] Number: [place], [place] [id number] [place], [place] [address]Ste: (419) Date: [phone] (HP) 07/17/2017 PEPPER YVETTE [place] PEPPER YVETTE [facility] TANNERDOB: [facility] TANNERDOB: [facility] [id number] Repository [facility] Number: [place], [place] [id number] [place], [place] [address]Wuu: ([phone]) Date: [address] [phone] () 07/17/2017 [facility] Primary Insurance:[facility] TANNERDOB: [facility] TANNERDOB: [facility] [id number] Repository [facility] Number: [place], [place] [id number] [place], [place] [address]Wqf: ([phone]) Date: [phone] ()
== END 2018-03-25 11:17 | disposition home or self-care (01) ==
LOC: SDC 07:15 → AC 07:16
PROVIDERS: Referring Provider Obstetrics & Gynecology; Visit Provider Obstetrics & Gynecology
PROC: (CPT 58661; principal; 2018-03-25 08:40)
DX: Z30.2 Encounter for sterilization (principal); F41.9 Anxiety disorder, unspecified; E72.12 Methylenetetrahydrofolate reductase deficiency; Z79.899 Other long term (current) drug therapy; J45.909 Unspecified asthma, uncomplicated; K21.9 Gastro-esophageal reflux disease without esophagitis; F32.9 Major depressive disorder, single episode, unspecified; B00.9 Herpesviral infection, unspecified; F43.10 Post-traumatic stress disorder, unspecified; F17.200 Nicotine dependence, unspecified, uncomplicated
CPT/HCPCS: 58661; 36415; 81025; 84703; 85027; 85610; 85730; 86850; 86900; 88302; 88305; J7120; J2405

== ENCOUNTER → 2018-04-29 16:27 | Outpatient (CLI) | payer MEDICAID, SELFPAY ==
[2018-04-29 18:00] LABS: Hemoglobin A1c 4.9 % (4.2-6.3)
[2018-04-29 18:04] LABS: Follicle Stimulating Hormone 4.3 mIU/mL; Free T3 3.1 pg/mL (2.18-3.98); Glucose 90 mg/dL (74-106); Luteinizing Hormone 4.5 mIU/mL; T4 Free Direct 0.84 ng/dL (0.76-1.46); Thyroid Stim Hormone (TSH) 1.33 uIU/mL (0.358-3.74)
[2018-04-29 18:06] LABS: Progesterone Level 0.34 ng/mL (See Comment)
[2018-05-06 12:24] LABS: HPV Reflexed? NOT INDICATED
== END ==
PROVIDERS: Visit Provider Obstetrics & Gynecology
DX: Z12.4 Encounter for screening for malignant neoplasm of cervix (principal); N92.6 Irregular menstruation, unspecified
CPT/HCPCS: 82947; 83001; 83002; 83036; 84144; 84439; 84443; 84481; 88175; G0145

== ENCOUNTER → 2018-05-07 10:59 | Outpatient (CLI) | payer MEDICAID, SELFPAY ==
--- NOTE | 2018-05-07 | IMM_PTH ---
PATIENT: PEPPER WARNER LOC: [facility] U#:[id number] AGE/SX: 29/F ROOM: RE05/07/[address]: Dr. Ruiz Vergara MD : 1995 BED: DIS: SPEC #: [id number] RECD: 05/08/18 11:31 STATUS: NANNETTE REGumaro #: [id number] BEN: 05/07/18 00:[address]: Ruiz Vergara DEPT: IMMUNOHISTOCHEMISTRY RECD BY: Sarahi Marshall ENTERED: 05/08/18 11:32 SP TYPE: IMMUNO OTHR DR: No Primary Care Phys Tissues: A - Uterine cervix, NOS Procedures: p16 (initial) KI-67 (add) PHYSICIAN & INSTITUTION [place] [id number] SPECIMEN INFORMATION: Tissue Source: A - Cervix at 5 o'clock, biopsy Clinical Info: [facility] Specimen Number: [id number] CPT code: 37296, 74952 METHODOLOGY: Deparaffinized sections of prefer/formalin-fixed tissue or PAP/DQ stained slides are incubated with monoclonal/polyclonal antibodies/oligonucleotide probes. Localization is made via biotin free immunoperoxidase method. Appropriate controls are performed and reacted as expected. Results on target cell population are indicated in the following table: RESULTS: ANTIBODY / CLONE RESULT Block A P16 (E6H4) negative Ki-67 (30-9) negative These tests were developed and their performance characteristics determined by [facility]. They may not have been cleared or approved by the [place]. Food and Drug Administration. The FDA has determined that such clearance or approval is not necessary. INTERPRETATION: A. Cervix at 5 o'clock, biopsy: No evidence of dysplasia. AM:odilon 05/11/18
--- NOTE | 2018-05-07 10:20 | CER_PTH ---
PATIENT: PEPPER WARNER LOC: [facility] U#:[id number] AGE/SX: 29/F ROOM: RE05/07/[address]: Dr. Ruiz Vergara MD : 1995 BED: DIS: SPEC #: [id number] RECD: 05/07/18 10:54 STATUS: NANNETTE CHELI #: [id number] BEN: 05/07/18 10:[address]: Ruiz Vergara DEPT: SURGICAL PATHOLOGY RECD BY: Noel Escobar ENTERED: 05/07/18 11:31 SP TYPE: CERV OTHR DR: No Primary Care Phys Tissues: A - Uterine cervix, NOS B - Endocervical Procedures: Surgery Specimen Level IV HEADER OPERATION: Colposcopy PRE-OP DIAGNOSIS: LGSIL pap 04/29/18 TISSUE SUBMITTED: A - Cervical biopsy 5 o'clock, B - ECC MICROSCOPIC DIAGNOSIS A. Cervix at 5 o'clock, biopsy: No evidence of dysplasia. Mild chronic inflammation. See comment. BKalyani Endocervix, curettings: Strips of benign superficial endocervix. No evidence of dysplasia. AM:odilon 05/08/18 COMMENT A. Results from immunohistochemistry ([id number]) for surrogate HPV marker (p16) will be reported separately. MICROSCOPIC DESCRIPTION Slides are reviewed. GROSS DESCRIPTION A - Received in fixative is one container labeled with the patient's name and designated cervix biopsy 5 o'clock. The specimen consists of multiple irregular fragments of light lloyd soft tissue that in aggregate measure 0.7 x 0.5 x 0.1 cm. The specimen is totally submitted in one cassette. B - Received in fixative is one container labeled with the patient's name and designated ECC. The specimen consists of light lloyd mucoid material aggregating to 1.5 x 1 x <0.1 cm. The specimen is totally submitted in one cassette. / AM:odilon 05/07/18 TC:4 CPT: 04551 x2
== END ==
PROVIDERS: Referring Provider Obstetrics & Gynecology; Visit Provider Obstetrics & Gynecology
DX: N72 Inflammatory disease of cervix uteri (principal)
CPT/HCPCS: 88305; 88341; 88342

== ENCOUNTER 2018-08-11 06:55 | Emergency (ER) | payer MEDICAID, SELFPAY ==
[2018-08-11 06:56] VITALS: BP 126/76; PULSE 92; RESP 18; TEMP 36.5; O2SAT 99; BMI 34.1
--- NOTE | 2018-08-11 07:06 | ED.VIS.GEN ---
History of Present Illness Chief Complaint: General Illness Informant: Patient Onset: Yesterday Context: Sudden Onset Timing: Continuous Quality: Throat pain or tongue swelling Location: Posterior pharynx Current Severity: Mild Maximum Severity: Moderate Worsened by: Swallowing Relieved by: Nothing Associated Symptoms: Postnasal drainage and slight cough Narrative: Patient is 23-year-old female who presents because of throat pain, tongue swelling and slight cough. Symptoms started late last evening early this morning. She denies headache. She denies visual, ocular auditory symptoms. She denies shortness of breath or chest discomfort. She states she has been in contact with friends who have illness. She is wondering if she caught what is going around . Prior similar symptoms: No Recent Illness/Hospitalization: No - Past Medical History (1) No significant past medical history Status: Acute Past Medical History - Allergies and Home Meds Allergies/Adverse Reactions: Allergies bee venom protein (honey bee) Allergy (Verified 08/11/18 07:01) Anaphylaxis sulfamethoxazole [From Novra] Allergy (Verified 08/11/18 07:01) Hives trimethoprim [From ] Allergy (Verified 08/11/18 07:01) Hives Primary Care Physician: Care Physician,No Primary [Primary Care Provider] - Prior records reviewed: Yes Lives: Spouse/ Significant Other, With Family Smoking Status: Current every day smoker Alcohol: None Drugs: None Review of Systems General: Denies: Chills, Fever, Sweats Eyes: Denies: Visual changes - bilaterally, Blurred Vision - bilaterally ENT: Reports: Sore throat. Denies: Bilateral ear pain, Rhinorrhea Cardiovascular: Denies: Chest pain, Palpitations Respiratory: Denies: Dyspnea, Cough, Sputum, Dyspnea on exertion Gastrointestinal: Denies: Nausea, Vomiting, Diarrhea Genitourinary: Denies: Dysuria, Hematuria, Frequency Musculoskeletal: Denies: Myalgias, Arthralgias, Neck pain, Back pain, Swelling, Extremity Pain Skin: Denies: Rash Neurological: Denies: Headache, Weakness Physical Exam Vital Signs/Narrative: Vital Signs Temp Pulse Resp BP Pulse Ox 08/11/18 06:56 97.7 F L 92 18 126/76 H 99 Inital Vital Signs reviewed: Yes General: Well nourished, Well developed, Obese, Unkempt, No Acute Distress Eyes: Perrl, EOMI. Negative for: Pale conjunctiva, Scleral icterus ENT: Moist mucous membranes, No rhinorrhea, TM's clear, - - Posterior pharynx without erythema or exudate. Postnasal drainage noted. Neck: Supple, Nontender, No lymphadenopathy, No JVD, - Cardiovascular: Regular rate, Regular rhythm, No murmurs, Normal S1, Normal S2 Respiratory: No distress, CTA bilaterally, Chest nontender Skin: Normal color, No rash, No Trauma. Negative for: Cyanosis, Diaphoresis, Jaundice Neurological: Alert, Oriented x3, Cranial nerves II-XII grossly intact, Normal Strength, Normal Sensation Psychological: Normal affect, Normal Mood Diagnostic/Tx/Re-eval - Medical Decision Making Patient with chief complaint of sore throat and tongue swelling. Only objective finding is postnasal drainage. Centor score 0. Rapid strep was not obtained. Patient was informed she may be ill for another 7 to 10 days. Recommended symptomatic [id number]-ucfmpzz treatment. ED Disposition - Plan for ED Patient: Disposition: Home or Assisted Living Diagnosis: Acute viral pharyngitis Instructions: ED Pharyngitis Viral Referrals: Care Physician,No Primary [Primary Care Provider] - Lety Anders [NON-STAFF] - 10-14 Days if not better
--- NOTE | 2018-08-11 07:10 | ED.DCSUM_ITS ---
History of Present Illness Chief Complaint: General Illness Informant: Patient Onset: Yesterday Context: Sudden Onset Timing: Continuous Quality: Throat pain or tongue swelling Location: Posterior pharynx Current Severity: Mild Maximum Severity: Moderate Worsened by: Swallowing Relieved by: Nothing Associated Symptoms: Postnasal drainage and slight cough Narrative: Patient is 23-year-old female who presents because of throat pain, tongue swe lling and slight cough. Symptoms started late last evening early this morning. She denies headache. She denies visual, ocular auditory symptoms. She denies shortness of breath or chest discomfort. She states she has been in contact with friends who have illness. She is wondering if she caught what is going around . Prior similar symptoms: No Recent Illness/Hospitalization: No - Past Medical History (1) No significant past medical history Status: Acute Past Medical History - Allergies and Home Meds Allergies/Adverse Reactions: Allergies bee venom protein (honey bee) Allergy (Verified 08/11/18 07:01) Anaphylaxis sulfamethoxazole [From ] Allergy (Verified 08/11/18 07:01) Hives trimethoprim [From ] Allergy (Verified 08/11/18 07:01) Hives Primary Care Physician: Care Physician,No Primary [Primary Care Provider] - Prior records reviewed: Yes Lives: Spouse/ Significant Other, With Family Smoking Status: Current every day smoker Alcohol: None Drugs: None Review of Systems General: Denies: Chills, Fever, Sweats Eyes: Denies: Visual changes - bilaterally, Blurred Vision - bilaterally ENT: Reports: Sore throat. Denies: Bilateral ear pain, Rhinorrhea Cardiovascular: Denies: Chest pain, Palpitations Respiratory: Denies: Dyspnea, Cough, Sputum, Dyspnea on exertion Gastrointestinal: Denies: Nausea, Vomiting, Diarrhea Genitourinary: Denies: Dysuria, Hematuria, Frequency Musculoskeletal: Denies: Myalgias, Arthralgias, Neck pain, Back pain, Swelling, Extremity Pain Skin: Denies: Rash Neurological: Denies: Headache, Weakness Physical Exam Vital Signs/Narrative: Vital Signs Temp Pulse Resp BP Pulse Ox 08/11/18 06:56 97.7 F L 92 18 126/76 H 99 Inital Vital Signs reviewed: Yes General: Well nourished, Well developed, Obese, Unkempt, No Acute Distress Eyes: Perrl, EOMI. Negative for: Pale conjunctiva, Scleral icterus ENT: Moist mucous membranes, No rhinorrhea, TM's clear, - - Posterior pharynx without erythema or exudate. Postnasal drainage noted. Neck: Supple, Nontender, No lymphadenopathy, No JVD, - Cardiovascular: Regular rate, Regular rhythm, No murmurs, Normal S1, Normal S2 Respiratory: No distress, CTA bilaterally, Chest nontender Skin: Normal color, No rash, No Trauma. Negative for: Cyanosis, Diaphoresis, Jaundice Neurological: Alert, Oriented x3, Cranial nerves II-XII grossly intact, Normal Strength, Normal Sensation Psychological: Normal affect, Normal Mood Diagnostic/Tx/Re-eval - Medical Decision Making Patient with chief complaint of sore throat and tongue swelling. Only objective finding is postnasal drainage. Centor score 0. Rapid strep was not obtained. Patient was informed she may be ill for another 7 to 10 days. Recommended symptomatic [id number] treatment. ED Disposition - Plan for ED Patient: Disposition: Home or Assisted Living Diagnosis: Acute viral pharyngitis Instructions: ED Pharyngitis Viral Referrals: Care Physician,No Primary [Primary Care Provider] - Lety Anders [NON-STAFF] - 10-14 Days if not better
[2018-08-11 07:21] VITALS: BP 113/68; PULSE 75; RESP 16; O2SAT 98
== END 2018-08-11 07:22 | disposition home or self-care (01) ==
PROVIDERS: Emergency Provider Emergency Medicine
DX: J02.9 Acute pharyngitis, unspecified (principal); J34.89 Other specified disorders of nose and nasal sinuses; E66.9 Obesity, unspecified; F17.200 Nicotine dependence, unspecified, uncomplicated
CPT/HCPCS: 99282